=== PATIENT | female | born 2000 | race Caucasian/White ===

== ENCOUNTER 2020-02-16 18:02 | Emergency (ER) | payer MEDICAID ==
[2020-02-16] MEDS ORDERED: ONDANSETRON 4 MG TAB.RAPDIS PO ONE (18:43)
--- NOTE | 2020-02-16 18:48 | ER Document Report ---
ED Medical Screen (RME) - General Chief Complaint: Nausea/Vomiting Stated Complaint: NAUSEA,DIZZINESS Time Seen by Provider: 02/16/20 18:36 Mode of Arrival: Ambulatory Information source: Patient Notes: 19-year-old female presented to ED for a abscess to the groin area some day. 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 She states she went to her primary care doctor and they told her it was a viral infection and gave her some tramadol ibuprofen and Valtrex and some topical lidocaine cream. She states none of these are doing her any good and now she is lightheaded nausea vomiting and has had a fever off and on. She is afebrile at this time. She states she did take ibuprofen about 2 hours ago 600 mg. 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 She states she does smoke 15 cigarettes does not drink or do any drugs. I have greeted and performed a rapid initial assessment of this patient. A comprehensive ED assessment and evaluation of the patient, analysis of test results and completion of medical decision making process will be conducted by an additional ED providers. - Related Data Allergies/Adverse Reactions: Sulfa (Sulfonamide Antibiotics) Allergy (Verified 02/16/20 18:36) Physical Exam - Vital signs Vitals: Temp Pulse Resp BP Pulse Ox 98.3 F 78 18 139/84 H 100 02/16/20 18:12 02/16/20 18:12 02/16/20 18:12 02/16/20 18:12 02/16/20 18:12 Course - Vital Signs Vital signs: Temp Pulse Resp BP Pulse Ox 98.3 F 78 18 139/84 H 100 02/16/20 18:12 02/16/20 18:12 02/16/20 18:12 02/16/20 18:12 02/16/20 18:12
[2020-02-16 19:31] LABS: APPEARANCE,URINE CLOUDY; BILIRUBIN,URINE NEGATIVE (NEGATIVE); COLOR,URINE YELLOW; GLUCOSE, URINE NEGATIVE (NEGATIVE); KETONES,URINE NEGATIVE (NEGATIVE); LEUKOCYTE ESTERASE,URINE SMALL (NEGATIVE); NITRITE,URINE NEGATIVE (NEGATIVE); PROTEIN,URINE NEGATIVE (NEGATIVE); URINE SPECIFIC GRAVITY 1.021; UROBILINOGEN,URINE NEGATIVE mg/dL (<2.0)
[2020-02-16] MEDS ORDERED: ACYCLOVIR 200 MG CAPSULE PO ONE (20:00)
[2020-02-16] MEDS ORDERED: GABAPENTIN 300 MG CAPSULE PO ONE (20:01)
--- NOTE | 2020-02-16 20:01 | ER Document Report ---
ED General - General Chief Complaint: Abscess Stated Complaint: NAUSEA,DIZZINESS Time Seen by Provider: 02/16/20 18:36 Mode of Arrival: Ambulatory Notes: Patient is a 19-year-old white female with a history of genital infection who presents the emergency department the chief complaint of ongoing pain. Patient has seen her regular doctor was placed on Valtrex was given lidocaine ointment and tramadol. She states the medicine is not working the pain is persisted and the infection is not going away. She states its involving the left labia, ulcerated and burning. States she is had this several times in the past. Denies any abdominal pain or vaginal discharge. No urinary complaints. No fevers, chills or night sweats. States she feels generally ill and uncomfortable. - Related Data Allergies/Adverse Reactions: Sulfa (Sulfonamide Antibiotics) Allergy (Verified 02/16/20 18:36) Past Medical History - General Information source: Patient - Social History Smoking Status: Current Every Day Smoker Family History: Reviewed & Not Pertinent - Past Medical History Cardiac Medical History: Reports: Hx Hypertension Past Surgical History: Reports: Hx Oral Surgery - wisdom teeth removal Review of Systems - Review of Systems Constitutional: denies: Fever EENT: denies: Nose pain Cardiovascular: denies: Dyspnea Respiratory: denies: Sputum Gastrointestinal: denies: Poor fluid intake Genitourinary: Pain Female Genitourinary: denies: Post menopausal Musculoskeletal: denies: Muscle stiffness Skin: denies: Change in hair/nails Hematologic/Lymphatic: denies: Blood clots Neurological/Psychological: Weakness Physical Exam - Vital signs Vitals: Temp Pulse Resp BP Pulse Ox 98.3 F 78 18 139/84 H 100 02/16/20 18:12 02/16/20 18:12 02/16/20 18:12 02/16/20 18:12 02/16/20 18:12 - General General appearance: Appears well, Alert In distress: None Notes: Nontoxic, no acute distress - Respiratory Respiratory status: No respiratory distress Chest status: Nontender Breath sounds: Normal Chest palpation: Normal - Cardiovascular Rhythm: Regular Heart sounds: Normal auscultation Murmur: No - Abdominal Inspection: Normal Distension: No distension Bowel sounds: Normal Tenderness: Nontender Organomegaly: No organomegaly - Genitourinary Notes: Cluster of lesions ulcerated appearance the left labia majora, very sensitive to light touch. No drainage. No abscess formation. No visible vaginal discharge on external exam. Chaperoned by female RN. - Neurological Neuro grossly intact: Yes Cognition: Normal Orientation: AAOx4 - Psychological Associated symptoms: Normal affect, Normal mood - Skin Skin Color: Other - Normal exposed skin except area described above Course - Re-evaluation Re-evalutation: 02/16/20 20:05 History and physical consistent with a herpetic viral infection of the labia. Will be started on acyclovir for recurrence. Given gabapentin for pain. She will continue using topical lidocaine cream. Counseled her at length regarding the importance of outpatient follow-up, to remain abstinent at this time or use sexual barrier protection and advised that she return here any ER immediately with any new, persistent or worsening symptoms. She verbalized understood and agreed. - Vital Signs Vital signs: Temp Pulse Resp BP Pulse Ox 98.3 F 78 18 139/84 H 100 02/16/20 18:12 02/16/20 18:12 02/16/20 18:12 02/16/20 18:12 02/16/20 18:12 - Laboratory Laboratory results interpreted by me: 02/16/20 19:10 Urine Blood MODERATE H Ur Leukocyte Esterase SMALL H Discharge - Discharge Clinical Impression: Herpes genitalia Qualifiers: Herpes simplex infection site: unspecified Qualified Code(s): A60.00 - Herpesviral infection of urogenital system, unspecified Condition: Stable Disposition: HOME, SELF-CARE Instructions: Genital Herpes ([facility]), Acyclovir ([facility]) Additional Instructions: Follow-up with your regular doctor in 2 to 3 days for reevaluation. Return here or any ER immediately with any new, persistent or worsening symptoms. Prescriptions: Gabapentin [Neurontin 300 mg Capsule] 300 mg PO Q8 #20 cap Acyclovir [Zovirax 200 mg Capsule] 400 mg PO Q4H 5 Days #50 capsule Referrals: ISMAEL JOHNSON MD [ACTIVE STAFF] - Follow up as needed
[2020-02-16 20:10] VITALS: BP 153/60
== END 2020-02-16 20:15 | disposition home or self-care (01) ==
LOC: ER 18:02
DX: A60.00 Herpesviral infection of urogenital system, unspecified (principal); R11.0 Nausea; R42 Dizziness and giddiness; R30.0 Dysuria; F17.200 Nicotine dependence, unspecified, uncomplicated; Z88.2 Allergy status to sulfonamides
CPT/HCPCS: 99283; 87086; 87088; 81001; S0119; J3490

== ENCOUNTER 2020-03-20 21:48 | Emergency (ER) | payer MEDICAID ==
[2020-03-20] MEDS ORDERED: ACETAMINOPHEN 325 MG TABLET PO ONE (22:59)
--- NOTE | 2020-03-20 23:00 | ER Document Report ---
ED Medical Screen (RME) - General Stated Complaint: COUGH/CONGESTION/FEVER/DIFFICULT BREATHING Time Seen by Provider: 03/20/20 22:58 Mode of Arrival: Ambulatory Information source: Patient Notes: HPI; 19-year-old female presents to the emergency room complaining of general body aches cough with congestion and a fever of 101 that started yesterday. States he been taking Tylenol with minimal relief. Denies any ill contacts. Denies any COVID-19 exposure. Did have a negative Covid test about a month ago. PE: Alert and oriented x3. Mild distress noted. Lungs: Scattered rhonchi no wheezes no rales. Heart: Regular rate rhythm without murmurs, rubs, gallops. I have greeted and performed a rapid initial assessment of this patient. A comprehensive ED assessment and evaluation of the patient, analysis of test results and completion of the medical decision making process will be conducted by additional ED providers. I have specifically instructed the patient or family members with the patient to immediately return to any nursing staff should anything change in the patient's condition or with their chief complaint. TRAVEL OUTSIDE OF THE [place] IN LAST 30 DAYS: No - Related Data Allergies/Adverse Reactions: Sulfa (Sulfonamide Antibiotics) Allergy (Verified 02/16/20 18:36) Home Medications: BCP Past Medical History - Past Medical History Cardiac Medical History: Reports: Hx Hypertension Past Surgical History: Reports: Hx Oral Surgery - wisdom teeth removal Physical Exam - Vital signs Vitals: Temp Pulse Resp BP Pulse Ox 99.3 F 81 20 148/89 H 99 03/20/20 21:59 03/20/20 21:59 03/20/20 21:59 03/20/20 21:59 03/20/20 21:59 Course - Vital Signs Vital signs: Temp Pulse Resp BP Pulse Ox 99.3 F 81 20 148/89 H 99 03/20/20 21:59 03/20/20 21:59 03/20/20 21:59 03/20/20 21:59 03/20/20 21:59
[2020-03-21 01:20] LABS: A TYPE INFLUENZA AG NEGATIVE (NEGATIVE); B INFLUENZA AG NEGATIVE (NEGATIVE)
--- NOTE | 2020-03-21 03:48 | RADIOLOGY REPORT (SQ) ---
EXAM DESCRIPTION: XR CHEST 2 VIEWS COMPLETED DATE/TME: 03/21/2020 03:17 CLINICAL HISTORY: cough COMPARISON: None. FINDINGS: Frontal and lateral radiographic views of the chest. Cardiomediastinal silhouette: Normal size and contour. Lungs: No consolidation, pneumothorax, or pleural effusion. Bones: No acute osseous abnormality. Upper abdomen: No abnormality identified. IMPRESSION: 1. No acute pulmonary process identified.
[2020-03-21] MEDS ORDERED: ALBUTEROL SULFATE 0.083% NEB 2.5 MG/3 ML AMPUL NEB ONE (04:09)
--- NOTE | 2020-03-21 04:38 | ER Document Report ---
ED General - General Chief Complaint: Flu Symptoms Stated Complaint: COUGH/CONGESTION/FEVER/DIFFICULT BREATHING Time Seen by Provider: 03/20/20 22:58 Mode of Arrival: Ambulatory TRAVEL OUTSIDE OF THE [place] IN LAST 30 DAYS: No - HPI Notes: Patient is a 19-year-old female who presents emergency department for evaluation of fever, cough, body aches, nasal congestion, sore throat. She is also having difficulty smelling. She states her cough is been dry and nonproductive. No known Covid exposures to her knowledge. - Related Data Allergies/Adverse Reactions: Sulfa (Sulfonamide Antibiotics) Allergy (Verified 02/16/20 18:36) Home Medications: BCP Past Medical History - General Information source: Patient - Social History Smoking Status: Current Every Day Smoker Family History: Reviewed & Not Pertinent - Past Medical History Cardiac Medical History: Reports: Hx Hypertension Pulmonary Medical History: Reports: Hx Pneumonia Past Surgical History: Reports: Hx Oral Surgery - wisdom teeth removal Review of Systems - Review of Systems Constitutional: See HPI EENT: See HPI Cardiovascular: No symptoms reported Respiratory: See HPI Gastrointestinal: No symptoms reported Genitourinary: No symptoms reported Musculoskeletal: No symptoms reported Skin: No symptoms reported Neurological/Psychological: No symptoms reported -: Yes All other systems reviewed and negative Physical Exam - Vital signs Vitals: Temp Pulse Resp BP Pulse Ox 99.3 F 81 20 148/89 H 99 03/20/20 21:59 03/20/20 21:59 03/20/20 21:59 03/20/20 21:59 03/20/20 21:59 - Notes Notes: Vital signs reviewed, please refer to chart. Head is normocephalic, atraumatic. Pupils equal round, reactive to light. Oral mucosa is moist. Pharynx is mildly erythematous without exudate. Neck is supple without meningismus. Heart is regular rate and rhythm. Lungs reveal scant expiratory wheezes anteriorly. Abdomen is soft, nontender, normoactive bowel sounds throughout. Extremities without cyanosis, clubbing. Posterior calves are nontender. Peripheral pulses are equal. Skin is warm and dry. Patient is awake, alert, neurological exam is nonfocal. Course - Re-evaluation Re-evalutation: 03/21/20 04:35 Patient presents to the emergency department for evaluation. She had a negative influenza and chest x-ray here. Her findings are most concerning to me for COVID-19 infection. Covid test will be performed. She is given albuterol inhaler for the scant wheezes, albuterol treatment while here. I will send her home as a PUI. She is to follow-up with primary care, return to the ED with worsening or new concerning symptoms of any sort. - Vital Signs Vital signs: Temp Pulse Resp BP Pulse Ox 98.9 F 76 20 140/71 H 99 03/21/20 03:20 03/21/20 03:20 03/20/20 21:59 03/21/20 03:20 03/21/20 03:20 Discharge - Discharge Clinical Impression: Person under investigation for COVID-19, Viral respiratory illness Condition: Stable Disposition: HOME, SELF-CARE Instructions: COVID-19 Guidance for Persons Under Investigation, Viral Syndrome ([facility]) Additional Instructions: Rest. Try to quit smoking. Albuterol inhaler as needed for wheezing and shortness of breath. Follow-up with primary care next week. Return the emergency department with worsening or new concerning symptoms of any sort. Forms: Return to Work
[2020-03-21 04:46] VITALS: BP 140/72
--- OUTSIDE RECORDS SUMMARY | 2020-03-22 14:52 | XMS REPORT ---
:2000 Author Organization [facility] Address [facility] [place] [address] [place] [address] Care Team Providers Name Role Phone PEDIATRICS, [place] Primary Care Physician Unavailable DELANO PARIS Attending Clinician Unavailable TANA Attending Clinician Unavailable CELINA CONRAD Attending Clinician Unavailable EMERGENCY Attending Clinician Unavailable MARI Attending Clinician Unavailable NIA CASH Attending Clinician Unavailable SERINA Attending Clinician Unavailable MARCELINO SANCHEZ Attending Clinician Unavailable Raine LUNA Attending Clinician Unavailable BOO PARIS Admitting Clinician Unavailable EMERGENCY Admitting Clinician Unavailable Romana ALPINE GUIDE, T Unavailable Unavailable Desha ALPINE GUIDE, C Unavailable Unavailable Mathew ALPINE GUIDE Unavailable Unavailable Christina GRILL CHEF, F Unavailable Unavailable Sergio BISHOP, Yogesh Unavailable Unavailable Homer NA Unavailable Unavailable Jessica ALPINE GUIDE, R Unavailable Unavailable Sigrid NAIK Unavailable Allergies, Adverse Reactions, Alerts Allergy Allergy Type Status Severity Reaction(s) Onset Inactive Treat ing Comments Name Date Date Clinician Sulfa Propensity Inactive Severe Nicholson-Hany (Sulfonam to adverse son syndrome 4-27 eleazar reactions to 00:00: Antibioti drug 00 cs) Sulfa Drug Allergy Active High Rash (Sulfonam 1-28 eleazar 00:00: Antibioti 00 cs) Sulfa Propensity Active Severe Rash (Sulfonam to adverse 1-28 eleazar reactions to 00:00: Antibioti drug 00 cs) Sulfa Allergy to Active Severe Nicholson-Hany (Sulfonam substance 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 Clinician (SIG) Name Name amoxicillin 2019- No 4877 1{tbl} 1 Tab, -pot 10-30 Oral, ED clavulanate 01:30: 01:35 ONCE, Tue (AUGMENTIN) 00 :00 10/31/19 at 500-125 mg 0130, For per tablet 1 1 Tab dose
In dications: Empiric Infection Treatment benzonatate 2019- No 100mg 100 mg, (TESSALON) 10-30 Oral, ED capsule 100 01:00: 01:01 ONCE, Tue mg 00 :00 10/31/19 at 0100, For 1 dose
Fo r cough, do NOT chew or crush. Swallow capsule whole.
amoxicillin 2019- No 1{tbl} Take 1 Tab -pot 10-30 by mouth clavulanate 00:00: 23:59 twice a (AUGMENTIN) 00 :00 day with 875-125 mg meals for Oral Tablet 7 days. benzonatate 2019- No 200mg [id number] Take 1 C ap (TESSALON) 10-30 [id number] by mouth 200 mg Oral 00:00: 23:59 3D three Capsule 00 :00 times a day as needed for Cough for up to 5 days. Do not chew capsule. norethindro Yes 1{tbl} QD Take 1 Tab ne 3-11 by mouth (MICRONOR) 00:00: daily. 0.35 mg 00 Oral Tablet etonogestre No 68mg 68 mg by l 1-13 Subdermal (NEXPLANON) 23:29: route 68 mg 12 Once. Subdermal Implant sertraline 2018-05 Yes 75mg QD Take 75 mg (ZOLOFT) 50 06-01 by mouth mg Oral 00:00: daily. Tablet 00 ENULOSE 10 2018-05- No TAKE 15ML gram/15 mL 06-01 BY MOUTH Oral 00:00: 00:00 EVERY DAY Solution 00 :00 NEEDED fentaNYL 2018-05- No 50ug 50 mcg (SUBLIMAZE) 05-27 (0.551 injection 01:00: 01:08 mcg/kg), 50 mcg 00 :00 Intravenou s, ONCE, 03/27/19 at 0100, For 1 dose
Fa ll Risk Medication
iohexol 2018-05- No 95mL 33,250 mg (OMNIPAQUE) 05-27 (95 mL), 350 mg 00:31: 00:30 Intravenou iodine/mL 49 :49 s, RAD solution ONCE, 33,250 mg Other, Starting 03/27/19 at 0031, For 1 day
For oral administra tion, mix 30 mL contrast with 900 mL water or other patient-pr eferred beverage, such as Lemonade, James-Aid, Sprite, 7-Up.&nbsp ; Do not mix with any red colored beverage.& lt;br>Is patient able to answer these questions? Yes
[employer] tech name and phone number: Alicia [phone]
Previous contrast reaction (except nausea/vom iting, heat/flush ing/pain)? If yes, describe in comments. No
Pret reatment for current study? No
Kidn ey disease? No
A re you diabetic? No
If yes, are you taking Glucophage , Metformin, Glucovance , or other oral diabete s medication s? No
Hist ory of asthma? If yes, how severe? No
Are you currently taking medication for asthma? No
Hist ory of drug or other allergies? Yes
History of anaphylact ic reaction to a drug, food, or other substance? No
Sign ificant cardiac dysfunctio n, e.g. unstable angina, severe congestive failur e, pulmonary hypertensi on? No
S ickle cell disease/Th alessemia? No
Pheo chromocyto ma? No
Mult iple Myeloma? No
Are you currently or nursing an ? No
Have you had anything to eat or drink in the last 4 hours? No
Have you had a barium study in the last week? No
Have you ever had cancer? If yes, what kind and when? No
Have you ever had surgery? If yes, what kind and when? Yes
Do you have an implanted device that can be turned off, e.g. pacemaker/ defibril lator or neurostimu lator. If yes, where is it located? No cyclobenzap 2018-05 Yes 10mg [id number] Take 1 T ab rine 05-27 [id number] by mouth (FLEXERIL) 00:00: 3D three 10 mg Oral 00 times a Tablet day as needed. docusate 2018-05- No 100mg Q.5D Take 1 Cap sodium 05-2702 by mouth (COLACE) 00:00: 23:59 twice a 100 mg Oral 00 :00 day for 14 Capsule days. naproxen 2018-05- No 500mg Take 1 Tab (NAPROSYN) 05-27 by mouth 500 mg Oral 00:00: 23:59 twice a Tablet 00 :00 day with meals for 7 days. sodium 2018-05- No 1000mL 1,000 mL chloride 05-26 (11 0.9 % bolus 23:45: 00:49 mL/kg), 1,000 mL 00 :00 Intravenou s, Administer over 1 Hours, ONCE, 03/26/19 at 2345, For 1 dose cyclobenzap 2018-05- No 10mg 10 mg, rine 05-26 Oral, ED (FLEXERIL) 23:45: 23:48 ONCE, Sun tablet 10 00 :00 03/26/19 mg at 2345, For 1 dose
Fa ll Risk Medication <br& gt; ketorolac 2018-05- No 30mg 30 mg, (TORADOL) 05-26 Intravenou 30 mg/mL (1 23:45: 23:48 s, ED mL) 00 :00 ONCE, Sun injection 03/26/19 30 mg at 2345, For 1 dose GABAPENTIN 2018-05 No Take by ORAL 0-15 mouth. 13:39: 12 Cefadroxil Yes 1{Capsu Cefadroxil 500 MG Oral 4-03 le} 500 MG Capsule 10:40: Oral 19 Capsule 1 twice per day (500 MG) Active gabapentin Yes 300mg Take 300 (NEURONTIN) 1-30 mg by 300 mg Oral 00:00: mouth. Capsule 00 cetirizine 2019- No 10mg Take 10 mg (ZYRTEC) 10 06-0830 by mouth. mg Oral 00:00: 23:59 Tablet 00 :00 valACYclovi No 1000mg Take 1,000 r (VALTREX) 06-08-30 mg by 1 gram Oral 00:00: 23:59 mouth. Tablet 00 :00 gabapentin No 300mg Take 300 (NEURONTIN) 06-0830 mg by 300 mg Oral 00:00: 23:59 mouth. Capsule 00 :00 cetirizine No 10MG Take 1 Take 1 (ZYRTEC) 10 06-08 tablet (10 tab let MG tablet 00:00: 23:59 mg total) (10 m g 00 :00 by mouth total) by Two (2) mouth Two times a (2) times day. for a day. 14 days for 14 days conjugated No .5g Insert 0.5 Ins ert estrogens 06-08 g into the 0.5 g (PREMARIN) 00:00: 23:59 vagina into th e 0.625 00 :00 daily. for vagina mg/gram 14 days daily. vaginal for 14 cream days triamcinolo 2018- No Apply Apply ne 06-08 topically topically (KENALOG) 00:00: 23:59 Three (3) Three (3) 0.1 % 00 :00 times a times a ointment day. for day. for 14 days 14 days valACYclovi No 1000MG Take 1 Take 1 r (VALTREX) 06-08 tablet tablet 1000 MG 00:00: 23:59 (1,000 mg (1,000 mg tablet 00 :00 total) by total) by mouth Two mouth Two (2) times (2) times a day. for a day. 12 days for 12 days gabapentin No 300MG Take 1 Take 1 (NEURONTIN) 06-0804 capsule capsul e 300 MG 00:00: 23:59 (300 mg (300 mg capsule 00 :00 total) by total) b y mouth mouth Three (3) Three (3) times a times a day. for 5 day. for days 5 days oxyCODONE 2018- No 5MG Take 1 Take 1 (ROXICODONE 06-08 tablet (5 tabl et (5 ) 5 MG 00:00: 23:59 mg total) mg total ) immediate 00 :00 by mouth by mout h release every four every tablet (4) hours four (4) as needed hours as for pain. needed for up to for pain. 5 days for up to 5 days valACYclovi 2018- No 500MG Take 1 Take 1 r (VALTREX) 06-08 tablet tablet 500 MG 00:00: 23:59 (500 mg (500 mg tablet 00 :00 total) by total) by mouth two mouth two (2) times (2) times a day as a day as needed. needed. for up to for up to 3 days For 3 days recurrent For outbreak, recurrent take three outbreak, day course take three day course Valtrex 500 Yes 1{tab} Valtrex MG Oral 06-07 500 MG Tablet 00:00: Oral 00 Tablet 1 tab BID prn (500 MG) Start : 9Active morphine 4 2018- No 4mg 4 mg mg/mL 06-05 (0.049 injection 4 22:15: 22:17 mg/kg), mg 00 :00 Intravenou s, ED ONCE, 06/05/18 at 2215, For 1 dose morphine 4 2018- No Starting mg/mL 06-05 Sun injection 22:09: 22:17 06/05/18 at - Pyxis 39 :00 2209, For Override 1 Pull dose
Cr eated by cabinet override&n bsp;Fall Risk Medication
HYDROcodone 2018- No 2{tbl} 2 Tab, -acetaminop 06-05 Oral, ED hen (NORCO, 21:15: 21:18 ONCE, Sun LORCET) 00 :00 06/05/18 at 5-325 mg 2115, For per tablet 1 2 Tab dose
Fa ll Risk Medication . For pain. Pediatrics : Do not exceed 5 doses of acetaminop hen in 24 hours.
diphenhydrA 2018- No 50mg 50 mg, MINE 06-05 Intravenou (BENADRYL) 21:15: 21:18 s, ED injection 00 :00 ONCE, Sun 50 mg 06/05/18 at 2115, For 1 dose
Fa ll Risk Medication . Do NOT exceed 25 mg/minute.
clindamycin 2018- No 2318 900mg Q8H 900 mg, (CLEOCIN) 06-05 Intravenou 900 mg/50 17:20: 17:19 s, at 100 mL IVPB 00 :00 mL/hr, (premix) Administer 900 mg over 30 Minutes, EVERY 8 HOURS FREE TIMES, First dose on 06/05/18 at 1720, For 7 days
In dications: Skin and Skin Structure Infection predniSONE 2018- No 60mg 60 mg, (DELTASONE) 06-05 Oral, ED tablet 60 17:20: 17:29 ONCE, Sun mg 00 :00 06/05/18 at 1720, For 1 dose
Gi ve with food and a full glass of water to reduce GI upset.&nbs p;
magic 2018- No 5mL Q4H 5 mL, mouthwash 06-05 Swish & liquid 5 mL 16:36: 16:35 Spit, 45 :45 EVERY 4 HOURS NEEDED, Mouth Discomfort , Starting 06/05/18 at 1636, For 30 days
In gredients: &nbs p;nystatin 62,500 units/5 mL; hydrocorti sone 1.25 mg/5 mL; & nbsp;diphe nhydramine 11 mg/5 mL. R efrigerate . &nb sp;Shake well.&nbsp ; Pro tect from light.&nbs p; &n bsp;Med Disposal - [facility]
diphenhydrA 2018- No 25mg 25 mg, MINE 06-05 Oral, ED (BENADRYL) 16:15: 17:29 ONCE, Sun capsule 25 00 :00 06/05/18 at mg 1615, For 1 dose
Fa ll Risk Medication <br& gt; HYDROcodone 2018- No 2{tbl} 2 Tab, -acetaminop 06-05 Oral, ED hen (NORCO, 16:15: 17:29 ONCE, Sun LORCET) 00 :00 06/05/18 at 5-325 mg 1615, For per tablet 1 2 Tab dose
Fa ll Risk Medication . &nb sp;For pain.&nbsp ; Ped iatrics:&n bsp; Do not exceed 5 doses of acetaminop hen in 24 hours.
magic 2019- No 5mL 5 mL, mouthwash 06-05 Swish & liquid 5 mL 15:15: 15:18 Spit, ED 00 :00 ONCE, 06/05/18 at 1515, For 1 dose
In gredients: &amp ;nbsp;nyst atin 62,500 units/5 mL; hydrocorti sone 1.25 mg/5 mL; & nbsp;diphe nhydramine 11 mg/5 mL. R efrigerate . &nb sp;Shake well.&nbsp ; Pro tect from light.&nbs p; &n bsp;Med Disposal - [facility]
morphine 4 2019- No 4mg 4 mg mg/mL 06-05 (0.049 injection 4 12:55: 13:04 mg/kg), mg 00 :00 Intravenou s, ED ONCE, 06/05/18 at 1255, For 1 dose diphenhydrA 2018- No 25mg 25 mg, MINE 06-05 Oral, ED (BENADRYL) 11:10: 11:15 ONCE, Sun capsule 25 00 :00 06/05/18 at mg 1110, For 1 dose
Fa ll Risk Medication <br& gt; HYDROcodone 2019- No 1{tbl} 1 Tab, -acetaminop 06-05 Oral, ED hen (NORCO, 11:10: 11:15 ONCE, Sun LORCET) 00 :00 06/05/18 at 5-325 mg 1110, For per tablet 1 1 Tab dose
Fa ll Risk Medication . &nb sp;For pain.&nbsp ; Ped iatrics:&n bsp; Do not exceed 5 doses of acetaminop hen in 24 hours.
morphine 2 No 2mg 2 mg mg/mL 06-05 (0.0245 injection 2 07:50: 08:33 mg/kg), mg 00 :00 Intravenou s, ED ONCE, 06/05/18 at 0750, For 1 dose ondansetron No 4mg 4 mg (ZOFRAN) 06-05 (0.049 injection 4 07:50: 08:33 mg/kg), mg 00 :00 Intravenou s, ED ONCE, 06/05/18 at 0750, For 1 dose
Do ses 4 mg or less can be administer ed IV push over 3-5 minutes. Doses over 4 mg should be diluted and infused over 15 minutes.&n bsp; &nbs p;
morphine 2 No 2mg 2 mg mg/mL 06-05 (0.0245 injection 2 05:55: 06:40 mg/kg), mg 00 :00 Intravenou s, ED ONCE, 06/05/18 at 0555, For 1 dose fluorescein 2018- No 1{strip 1 Strip, (FLUORETS) 06-05 } Both Eyes, ophthalmic 05:50: 05:50 ED ONCE, strip 1 00 :00 Sun Strip 06/05/18 at 0550, For 1 dose fluorescein No Starting (FLUORETS) 06-05 Sun 1 mg 05:47: 05:50 06/05/18 at ophthalmic 49 :00 0547, For strip - 1 Pyxis dose
Cr Override eated by Pull cabinet override<b r> tetracaine No 2[drp] 2 Drop, HCl (PF) 06-05 Both Eyes, (OPTICAINE, 05:25: 05:37 ED ONCE, PONTOCAINE) 00 :00 Sun 0.5 % 06/05/18 at ophthalmic 0525, For solution 2 1 dose Drop fluorescein 2019- No 1{strip 1 Strip, (FLUORETS) 06-05 } Both Eyes, ophthalmic 05:25: 05:38 ED ONCE, strip 1 00 :00 Sun Strip 06/05/18 at 0525, For 1 dose iohexol 2019- No 95mL 33,250 mg (OMNIPAQUE) 06-05 (95 mL), 350 mg 04:50: 04:49 Intravenou iodine/mL 22 :22 s, RAD solution ONCE, 33,250 mg Other, Starting 06/05/18 at 0450, For 1 day
For oral administra tion, mix 30 mL contrast with 900 mL water or other patient-pr eferred beverage, such as Lemonade, James-Aid, Sprite, 7-Up.&nbsp ; Do not mix with any red colored beverage.< br>Is patient able to answer these questions? Yes
[employer] tech name and phone number: ALICIA [phone]
Previous contrast reaction (except nausea/vom iting, heat/flush ing/pain)? If yes, describe in comments. No
Pret reatment for current study? No
Kidn ey disease? No
A re you diabetic? No
If yes, are you taking Glucophage , Metformin, Glucovance , or other oral diabete s medication s? No
Hist ory of asthma? If yes, how severe? No
Are you currently taking medication for asthma? No
Hist ory of drug or other allergies? No
Hist ory of anaphylact ic reaction to a drug, food, or other substance? No
Sign ificant cardiac dysfunctio n, e.g. unstable angina, severe congestive failur e, pulmonary hypertensi on? No
Sick le cell disease/Th alessemia? No
Pheo chromocyto ma? No
Mult iple Myeloma? No
A re you currently or nursing an ? No
Have you had anything to eat or drink in the last 4 hours? No
Have you had a barium study in the last week? No
Have you ever had cancer? If yes, what kind and when? No
Have you ever had surgery? If yes, what kind and when? Yes
Do you have an implanted device that can be turned off, e.g. pacemaker/ defibril lator or neurostimu lator. If yes, where is it located? No diphenhydrA 2018- No 50mg 50 mg, MINE 06-05 Oral, ED (BENADRYL) 04:20: 04:42 ONCE, Sun capsule 50 00 :00 06/05/18 at mg 0420, For 1 dose
Fa ll Risk Medication <br& gt; morphine 4 2019- No 4mg 4 mg mg/mL 06-05 (0.049 injection 4 04:05: 04:09 mg/kg), mg 00 :00 Intravenou s, ED ONCE, 06/05/18 at 0405, For 1 dose lactated 2018- No 1000mL 1,000 mL Ringer's 06-05 (12.3 bolus 1,000 04:05: 04:37 mL/kg), mL 00 :00 Intravenou s, Administer over 28 Minutes, ED ONCE, 06/05/18 at 0405, For 1 dose clindamycin 2019- No 2318 600mg 600 mg, (CLEOCIN) 06-05 Intravenou 600 mg/50 02:45: 03:27 s, at 100 mL IVPB 00 :00 mL/hr, (premix) Administer 600 mg over 30 Minutes, NOW, 06/05/18 at 0245, For 1 dose
Indicatio ns: Skin and Skin Structure Infection morphine 2 2019- No 2mg 2 mg mg/mL 06-05 (0.0245 injection 2 02:05: 02:05 mg/kg), mg 00 :00 Intravenou s, ONCE, 06/05/18 at 0205, For 1 dose ondansetron 2018- Yes Starting (ZOFRAN) 4 06-05 Sun mg/2 mL 01:10: 06/05/18 at injection 08 0110, For - Pyxis 1 Override dose
Cr Pull eated by cabinet override<b r> lactated 2018- No 1000mL 1,000 mL Ringer's 06-05 (12.3 bolus 1,000 01:10: 01:40 mL/kg), mL 00 :00 Intravenou s, Administer over 28 Minutes, ED ONCE, 06/05/18 at 0110, For 1 dose morphine 4 No 4mg 4 mg mg/mL 06-05 (0.049 injection 4 01:10: 01:13 mg/kg), mg 00 :00 Intravenou s, ED ONCE, 06/05/18 at 0110, For 1 dose ondansetron 2018- No 4mg 4 mg (ZOFRAN) 06-05 (0.049 injection 4 01:10: 01:11 mg/kg), mg 00 :00 Intravenou s, ED ONCE, 06/05/18 at 0110, For 1 dose
Do ses 4 mg or less can be administer ed IV push over 3-5 minutes. Doses over 4 mg should be diluted and infused over 15 minutes.&n bsp; &nbs p;
lidocaine 2018- No 15mL 15 mL, PF 05-30 Intraderma (XYLOCAINE) 12:00: 11:59 l, ONCE, 10 mg/mL (1 00 :00 Mon %) 05/30/18 at injection 1200, For 15 mL 1 dose lidocaine No Starting PF 05-30 (XYLOCAINE) 11:56: 05/30/18 at 10 mg/mL (1 58 1156, For %) 1 injection dose
Cr - Pyxis eated by Override cabinet Pull override<b r> sulfamethox 2018- No Starting azole-trime 05-30 Mon thoprim 11:52: 12:01 05/30/18 at (BACTRIM 13 :00 1152, For DS,SEPTRA 1 DS) 800-160 dose
Cr mg per eated by tablet - cabinet Pyxis override<b Override r> Pull sulfamethox 2018- No 2318 2{tbl} 2 Tab, azole-trime 05-30 Oral, ED thoprim 11:50: 12:01 ONCE, Mon (BACTRIM 00 :00 05/30/18 at DS,SEPT 1150, For DS) 800-160 1 mg per dose
Us tablet 2 e for Tab Bactrim DS
Maribeth cations: Skin and Skin Structure Infection traMADol 2018- No 50mg 50 mg, (ULTRAM) 05-30 Oral, tablet 50 11:40: 12:01 ONCE, Mon mg 00 :00 05/30/18 at 1140, For 1 dose lidocaine 2018- No Starting PF 05-30 Mon (XYLOCAINE) 11:39: 11:59 05/30/18 at 10 mg/mL (1 49 :00 1139, For %) 1 injection dose
Cr - Pyxis eated by Override cabinet Pull override<b r> sulfamethox 2018- No 2{tbl} Q.5D Take 2 azole-trime 05-30 Tabs by thoprim 00:00: 23:59 mouth (BACTRIM 00 :00 twice a DS, day for 10 DS) 800-160 days. mg Oral Tablet traMADol 2018- No 50mg Q6H Take 1 Tab (ULTRAM) 50 05-30 by mouth mg Oral 00:00: 23:59 every 6 Tablet 00 :00 hours as needed for Pain for up to 3 days. Estradiol 1 2017- No Lashawn Davidson 1{Table QD Estradiol MG Oral 07-20 Christina SALAZAR t} 1 MG Oral Tablet 00:00: 00:00 Tablet 1 00 :00 (one) Tablet Tablet daily for 14 days Quantity: 14 {Tablet} Refills: 0 Ordered: 8 Christina SALAZARLashawn Start : 8 End : 8 Inactive Cephalexin 2017- No Luciana 1{Table Q0.5D Cephalex in 500 MG Oral 07-1215 T Jeremy t} 500 MG Tablet 00:00: 00:00 PA Oral 00 :00 Tablet 1 (one) Tablet two times daily for 10 days Quantity: 20 {Tablet} Refills: 0 Ordered: 12-Jul-2017 Luciana Gomez Start : 12-Jul-2017 End : 8 Inactive Nexplanon 2017- Yes Nexplanon 68 MG - 68 MG Subcutaneou 09:54: Subcutaneo s Implant 51 us Implant (68 MG) Active Sertraline No Palma W 1.5{Tab QD Sertral ine HCl 50 MG 07-05 Eiban PA let} HCl 50 MG Oral Tablet 00:00: Oral 00 Tablet 1.5 Tablet daily for 30 days Quantity: 45 {Tablet} Refills: 1 Ordered: 8 Elsie LEVY, Palma W Start : 8 Active Lidocaine 2017- No Erica E 4.5{Mil Lidocaine S ite: HCl 1 % 05-26 Chichi liliter HCl 1 % Arm, (L) Injection 00:00: 00:00 Stacy BISHOP } Injection Solution 00 :00 Solution 4.5 Milliliter Ordered: 8 Erica Mclaughlin MD Start : 8 End : 8 Administer ed Comments: Site: Arm, (L) Nexplanon 2018- No Erica E 68{Mill Nexplanon S ite: 68 MG 05-26 Chichi igrmacario} 68 MG Arm, (L) Subcutaneou 00:00: 00:00 Stacy BISHOP Subcutane o s Implant 00 :00 us Implant 68 Milligram Ordered: 8 Erica Mclaughlin MD Start : 8 End : 8 Administer ed Comments: Site: Arm, (L) Fluticasone 2018- No Ecxaida 1{Bledsoe Fluticaso n Propionate 05-18 Coronel NA } e 50 MCG/ACT 00:00: 00:00 Propionate Nasal 00 :00 50 MCG/ACT Suspension Nasal Suspension 1 (one) Bledsoe Bledsoe each nostril daily for 30 days Quantity: 1 {Bottle} Refills: 1 Ordered: 12-Jul-2017 Coronel NA, Ecxaida Start : 18-May-2017 End : 12-Jul-2017 Inactive Amoxicillin 2017- No Felicitas 1{Table Amoxicill i 875 MG Oral 05-11 Faustina LEVY t} n 875 MG Tablet 00:00: 00:00 Oral 00 :00 Tablet 1 (one) Tablet BID for 7 days Quantity: 14 {Tablet} Refills: 0 Ordered: 11-May-2017 Felicitas Wood Start : 11-May-2017 End : 18-May-2017 Inactive MedroxyPROG 2016-05- No Felicitas 150{mg} MedroxyPR O Site: ESTERone 06-28 Faustina LEVY GESTERone Delt oid, Acetate 150 00:00: 00:00 Acetate (L) MG/ML 00 :00 150 MG/ML Intramuscul Intramuscu ar lar Suspension Suspension 150 mg Ordered: 7 Felicitas Wood Start : End : Administer ed Comments: Site: Deltoid, (L) Depo-Director Supply Chain 2016-05- No Jazz Navarro 1{Felicitas Depo-Prov e to be a 150 MG/ML 06-27 Dewayne liter} ra 150 give n in Intramuscul 00:00: 00:00 ALPINE GUIDE MG/ML office ar 00 :00 Intramuscu Suspension lar Suspension 1 (one) Milliliter Milliliter q90 days for 0 days Quantity: 1 {Vial} Refills: 0 Ordered: 8 Dewayne ALPINE GUIDEJazz Amanda S Start : End : 8 Inactive Comments: to be given in office Omeprazole 2016-05- No Nell Reid 1{Table Omeprazole 20 MG Oral 06-27 Romana WALKER t} 20 MG Oral Tablet 00:00: 00:00 Tablet Delayed 00 :00 Delayed Release Release 1 (one) Tablet Tablet BID for 30 days Quantity: 60 {Tablet} Refills: 0 Ordered: Nell Avendano LPN Start : End : 8 Inactive BusPIRone 2016-05- No Felicitas 1{Table BusPIRone HCl 7.5 MG 06-27 Faustina reid} HCl 7.5 MG Oral Tablet 00:00: 00:00 Oral 00 :00 Tablet 1 (one) Tablet Tablet BID for 30 days Quantity: 60 {Tablet} Refills: 1 Ordered: 18-May-2017 Felicitas Wood Start : End : 18-May-2017 Inactive Albuterol 2016-05 No Felicitas Albuterol 0-17 Faustina LEVY Ordered: 09:49: 10 7 Felicitas Weems Pending Albuterol 2016-05- No Felisa H 1{nebul Albuterol Sulfate 002-28 Carmen [place]INGHAM e} Sulfate (2.5 00:00: 00:00 (2.5 MG/3ML) 00 :00 MG/3ML) 0.083% 0.083% Inhalation Inhalation Nebulizatio Nebulizati n Solution on Solution 1 (one) nebule nebule q4h x 24 hours then q4h prn SOB, wheezing for 5 days Quantity: 1 {Box} Refills: 0 Ordered: Felisa Morales RN H Start : End : 7 Inactive Albuterol 2016-05 2017- No Felicitas 1{Vial} Albuterol S ite: Sulfate 002-23 Faustina LEVY Sulfate Nose an d (2.5 00:00: 00:00 (2.5 Mouth MG/3ML) 00 :00 MG/3ML) 0.083% 0.083% Inhalation Inhalation Nebulizatio Nebulizati n Solution on Solution 1 (one) Vial Ordered: 7 Felicitas Wood Start : End : Administer ed Comments: Site: Nose and Mouth Benzonatate 2016-05 No 1{Capsu Q0.3333D Benzonat at Medicatio 200 MG Oral 0-15 le} e 200 MG n codey en Capsule 00:00: Oral as 00 Capsule 1 needed. three up to 5 times days daily, as needed (200 MG) Start : Inactive Comments: Medication taken as needed. up to 5 days LevoFLOXaci 2016-05 No 1{Table QD LevoFLOXac for 5 n 500 MG 0-15 t} in 500 MG days Oral Tablet 00:00: Oral 00 Tablet 1 daily (500 MG) Start : Inactive Comments: for 5 days PredniSONE 2016-05 No 2{Table QD PredniSONE w ith 20 MG Oral 0-15 t} 20 MG Oral sophy kfast Tablet 00:00: Tablet 2 for 5 00 daily (20 days MG) Start : Inactive Comments: with breakfast for 5 days ProAir HFA 2016-05- Felicitas 4{Puff} Q4H ProAir HFA Medicatio 108 (90 0-13 04-27 Faustina PA 108 (90 n taken Base) 00:00: 00:00 Base) as MCG/ACT 00 :00 MCG/ACT needed. Inhalation Inhalation Aerosol Aerosol Solution Solution 4 Puff Puff every four hours, as needed for 30 days Quantity: 1 {Inhaler} Refills: 1 Ordered: Felicitas Wood Start : End : Inactive Comments: Medication taken as needed. Zithromax 2016-05- Debra Pimentel 2{Table Zithromax 250 MG Oral 02-23 Radha GRILL CHEF t} 250 MG Tablet 00:00: 00:00 Oral 00 :00 Tablet 2 (two) Tablet today, one tablet each day for 4 days for 5 days Quantity: 6 {Tablet} Refills: 0 Ordered: Debra Garcia CMA Start : 7 End : Inactive Zithromax 2016-05- Debra Pimentel 2{Table Zithromax 250 MG Oral 02-23 [place] GRILL CHEF t} 250 MG Tablet 00:00: 00:00 Oral 00 :00 Tablet 2 (two) Tablet today, one tablet each day for 4 days for 5 days Quantity: 6 {Tablet} Refills: 0 Ordered: Debra Garcia CMA Start : 7 End : 7 Inactive Albuterol 2016-05- Shaina Adams 1{vial} Albuterol Site: Sulfate 02-19 Gunnar Sulfate Mouth (2.5 00:00: 00:00 MD (2.5 MG/3ML) 00 :00 MG/3ML) 0.083% 0.083% Inhalation Inhalation Nebulizatio Nebulizati n Solution on Solution 1 (one) vial Ordered: Shaina Maher MD Start : End : Administer ed Comments: Site: Mouth LAMICTAL, No LAMICTAL, 25MG (Oral 9-26 25MG (Oral Tablet) 10:27: Tablet) 21 (25 MG) Inactive LEXAPRO, No LEXAPRO, 10MG (Oral 9-26 10MG (Oral Tablet) 10:27: Tablet) 19 (10 MG) Inactive EFFEXOR XR, No 1{capsu EFFEXOR Med icatio 150MG (Oral 9-26 le} XR, 150MG n Capsule 10:27: (Oral informati Extended 18 Capsule on given Release 24 Extended by Hour) Release 24 Mother. Hour) 1 capsule at bedtime (150 MG) Inactive Comments: Medication informatio n given by Mother. EFFEXOR XR, No 1{capsu EFFEXOR Med icatio 75MG (Oral 9-26 le} XR, 75MG n Capsule 10:27: (Oral informati Extended 17 Capsule on given Release 24 Extended by Hour) Release 24 Mother. Hour) 1 capsule every morning (75 MG) Inactive Comments: Medication informatio n given by Mother. ZyrTEC No Kaylyn 1{Table ZyrTEC Allergy 10 - Mathew t} Allergy 10 MG Oral 00:00: ALPINE GUIDE MG Oral Tablet 00 Tablet 1 (one) Tablet Tablet at bedtime for 30 days Quantity: 30 {Tablet} Refills: 3 Ordered: Kaylyn Carmona LPN Start : Active VISTARIL, 2014-05 No VISTARIL, 25MG (Oral 2-22 25MG (Oral Capsule) 14:49: Capsule) 33 (25 MG) Inactive ZOLOFT, 2014-05 No 0{table ZOLOFT, 25MG (Oral 2-22 t} 25MG (Oral Tablet) 14:49: Tablet) 32 1/2 tablet (25 MG) Inactive CEFTIN, Shaina Adams 1{Table Q0.5D CEFTIN, 500MG (Oral 01-21 Gunnar t} 500MG Tablet) 00:00: 00:00 MD (Oral 00 :00 Tablet) 1 (one) Tablet two times daily for 10 days Quantity: 20 {Tablet} Refills: 0 Ordered: 5 Shaina Maher MD Start : 5 End : 5 Inactive Melatonin 2013-05 No 1 Melatonin 07-02 1 (one) 17:42: Inactive 13 FOCALIN XR, 2013-05 No 1{Capsu QD FOCALIN 1 p o 10MG (Oral 07-02 le_ER_2 XR, 10MG ever y Capsule 17:42: 4HR} (Oral morning Extended 10 Capsule Release 24 Extended Hour) Release 24 Hour) 1 (one) daily (10 MG) Inactive Comments: 1 po every morning TAMIFLU, 2013-05- Luis Daniel A 1{Capsu Q0.5D TAMIFLU, 75MG (Oral 07-02 Sergio le} 75MG (Oral Capsule) 00:00: 00:00 MD Capsule) 1 00 :00 (one) Capsule two times daily for 5 days Quantity: 10 {Capsule} Refills: 0 Ordered: 4 Luis Daniel Hill MD Start : 4 End : 4 Inactive LOESTRIN FE 2013- Luis Daniel A 1{Table QD LOESTRIN 05/29, 08-15 Sergio reid} FE 05/29, 1-20MG-MCG 00:00: 00:00 1-20MG-MCG (Oral 00 :00 (Oral Tablet) Tablet) 1 (one) Tablet daily for 28 days Quantity: 1 {Packet} Refills: 3 Ordered: 4 Luis Daniel Hill MD Start : 15-Aug-2013 End : 4 Inactive AMITRIPTYLI 2013- Shaina Adams 1{Table AMITRIP TYL NE HCL, 207-13 Gunnar t} INE HCL, 25MG (Oral 00:00: 00:00 MD 25MG (Oral Tablet) 00 :00 Tablet) 1 (one) Tablet at bedtime for 30 days Quantity: 30 {Tablet} Refills: 0 Ordered: 13-Jun-2013 Shaina Maher MD Start : 13-Jun-2013 End : 13-Jul-2013 Inactive CELEXA, Luis Daniel Zuñiga 1{Table CELEXA, 10MG (Oral 06-05 Sergio reid} 10MG (Oral Tablet) 00:00: 00:00 Tablet) 1 00 :00 (one) Tablet Tablet at bedtime for 30 days Quantity: 30 {Tablet} Refills: 3 Ordered: 4 Luis Daniel Hill MD Start : 4 End : 4 Inactive AMOXICILLIN 2013- Luciana 1{Table Q0.5D AMOXICI LLI , 500MG 05-29 T Jeremy reid} N, 500MG (Oral 00:00: 00:00 PA (Oral Tablet) 00 :00 Tablet) 1 (one) Tablet two times daily for 10 days Quantity: 20 {Tablet} Refills: 0 Ordered: 4 Luciana Gomez Start : 4 End : 4 Inactive PROZAC, Luis Daniel Zuñiga 1{Capsu QD PROZAC, 10MG (Oral 05-26 Sergio mc} 10MG (Oral Capsule) 00:00: 00:00 Capsule) 1 00 :00 (one) Capsule Capsule daily for 30 days Quantity: 30 {Capsule} Refills: 3 Ordered: 4 Luis Daniel Hill MD Start : 4 End : 4 Inactive LOESTRIN 2012-05 Lubna Adams 1{Table QD LOESTRIN 05/29 (21), 2-05-15 Mathew t} 05/29 (21), 1-20MG-MCG 00:00: 00:00 INFORMATION TECHNOLOGY INSTRUCTOR 1-20MG-MCG (Oral 00 :00 (Oral Tablet) Tablet) 1 (one) Tablet daily for 28 days Quantity: 1 {package(s )} Refills: 0 Ordered: 17-Apr-2013 Lubna Sosa Start : 17-Apr-2013 End : 15-May-2013 Inactive ondansetron No 1 Q8H ondansetro 8 mg n 8 mg disintegrat disintegra ing tablet ting Place [address] 1 every 8 tablet hours by every 8 translingua hours by l route for translingu 2 days. al route for 2 days. lidocaine 5 No lidocaine % topical 5 % ointment topical APPLY TO ointment LABIA BY APPLY TO TOPICAL LABIA BY ROUTE 1-4 TOPICAL TIMES DAILY ROUTE 1-4 NEEDED TIMES DAILY NEEDED tramadol 50 No 1 Q6H tramadol mg tablet 50 mg Take 1 tablet tablet Take 1 every 6 tablet hours by every 6 oral route hours by as needed oral route for 5 days. as needed for 5 days. valacyclovi No 1 Q1D valacyclov r 1 gram ir 1 gram tablet Take tablet 1 tablet Take 1 every day tablet by oral every day route for 5 by oral days. route for 5 days. ibuprofen No 1 TID ibuprofen 600 mg 600 mg tablet Take tablet 1 tablet 3 Take 1 times a day tablet 3 by oral times a route as day by needed for oral route 10 days. as needed for 10 days. 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 Having some mil d somnolen c e, slowe d thinking , dizzines s , nausea , and sensatio n of palpitat i ons. Lab s overall normal Toxicolo g y consulte d . Apprecia t e their recs: - agree with CMP , CBC, upreg, ua, etoh level, salicyla t e level, and TCA screen - medicall y stable from toxicolo g y perspect i ve - continuo u s cardia c monitori n g during medical observat i on - ready fo r d/c of monitors - There is no antidote or role for enhanced eliminat i on - Therapy is largely supporti v e - if seizures develop they should b e treated with benzodia z epines. If seizures persist may use barbitur a moncho or propofol . - if hypotens i on develops it shoul d be treated with normal saline bolus initiall y and may require pressors (norepi or dopamine ) - if signs of worsenin g cardiac or neuro toxicity develop you coul d consider lipid emulsion therapy although there is only limited evidence to support this. Suicide Suicide [id number] Active Overvie w: attempt attempt Talked 00:00: with mom 00 via phone. She has given verbal permissi o n for psychiat r y to see patient. -Sitter at bedside -Hold lamictal . Will continue lexapro for now -IVC'd. Going to [facility] in [facility] e Elevated Elevated [id number] Active Overv iew: TSH TSH -Low TSH , 00:00: normal 00 free T4. No goite r or neck tenderne s s on exam. Concern for subclini c al hypothyr o idism - called Peds endocrin o edilia, Dr Mirta newell, for her opinion: -No subclini c al hypothyr o id clarissa p needed unless TSH > 10 or goite r on exam -No antibody testing unless goiter o n exam -Patient is obese . There ar e reports of obesity leading to mild TSH elevatio n s (and not the other wa y around) -Suggest e d repeat TSH in a few week s in outpatie n t setting. If TSH > 10, TSH increasi n g, or signs of goiter then she can be referred to [facility]. 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 Back pain Back pain Problem Active Avendano, Nell T Problem Inactiv Desha, Weight Weight e Francheska C BMI (body BMI (body Problem Active Avendano, mass mass Nell T index), index), pediatric, pediatric, 95-99% for 95-99% for age age (Renamed (Renamed from Body from Body mass index mass index equal to or equal to or greater greater than 95th than 95th percentile percentile for age in for age in pediatric pediatric patient) patient) Bronchitis Bronchitis Problem Active Avendano, Nell T Cleft lip Cleft lip Problem Active Avendano, Nell T Dysmenorrhe Dysmenorrhe Problem Active Avendano, a a Nell T Fatigue Fatigue Problem Active Avendano, Nell T Feared Feared Problem Active Avendano, complaint complaint Nell T without without diagnosis diagnosis FEMALE FEMALE Problem Inactiv Mathew ADOLESCENT ADOLESCENT e Kaylyn WELL VISIT WELL VISIT (V20.2) Flu Flu Problem Inactiv Mathew, HL7.CCDAR2 e Kaylyn FLU - FLU - Problem Inactiv Mathew, INFLUENZA INFLUENZA e Kaylyn (Full) (Full) (V04.81) [id number] Gastritis Gastritis Problem Active Avendano, Nell T Gestational Gestational Problem Inactiv Desha, Age Age e Francheska C Grief Grief Problem Inactiv Desha, HL7.CCDAR2 e Francheska C H/O suicide H/O suicide Problem Inactiv Desha, attempt attempt HL7.CCDAR2 e Francheska C Headache Headache Problem Active Avendano, Nell T Injury of Injury of Problem Active Avendano, left foot left foot Nell T including including toes toes Mononucleos Mononucleos Problem Inactiv Gachuz, is is e Diana [place] Problem Inactiv Desha, Complicatio Complicatio e Francheska C ns ns Pharyngitis Pharyngitis Problem Inactiv Desha, HL7.CCDAR2 e Francheska C Rhinitis Rhinitis Problem Active Avendano, Nell T Right ankle Right ankle Problem Active Avendano, pain pain Nell T Right knee Right knee Problem Inactiv Desha, pain pain e Francheska C Sinusitis Sinusitis Problem Active Avendano, Nell T Sore throat Sore throat Problem Inactiv Mathew, HL7.CCDAR2 e Kaylyn Strep Strep Problem Active Avendano, throat throat Nell T exposure exposure URI (upper URI (upper Problem Inactiv Sergio, respiratory respiratory HL7.CCDAR2 e Luis Daniel A infection) infection) Xerosis Xerosis Problem Active Avendano, cutis cutis Nell T Community Community Problem Active Avendano, acquired acquired Nell T pneumonia pneumonia Nexplanon Nexplanon Problem Active Avendano, insertion insertion Nell T Flu- Flu- Problem Inactiv Coronel, Influenza Influenza HL7.CCDAR2 e Ecxaida Quadrivalen Quadrivalen t (Full) t (Full) [id number] (Renamed (Renamed from Need from Need for for immunizatio immunizatio n against n against influenza) influenza) MENACTRA MENACTRA Problem Inactiv Coronel, (V03.89) 93671 e Ecxaida 11731 Depression Depression Problem Active Avendano, Nell T Irregular Irregular Problem Active Avendano, periods periods Nell T Prevnar Prevnar Problem Inactiv Jessica, (19763) (98353) HL7.CCDAR2 e Boo Sánchez (Renamed (Renamed from Need from Need for for vaccination vaccination against against Streptococc Streptococc us us pneumoniae) pneumoniae) Encounter Encounter Problem Inactiv Desha, for initial for initial HL7.CCDAR2 e Anayeli ca C prescriptio prescriptio n of n of Nexplanon Nexplanon Right Right Problem Inactiv Desha, otitis otitis e Francheska C media media Right acute Right acute Problem Inactiv Desha, serous serous e Francheska C otitis otitis media media DUB DUB Problem Active Avendano, (dysfunctio (dysfunctio Nell T nal uterine nal uterine bleeding) bleeding) UTI UTI Problem Active O'Lynne, (urinary (urinary Felicitas tract tract infection) infection) Left low Left low Problem Active Avendano, back pain back pain Nell T Lower Lower Problem Active Avendano, abdominal abdominal Nell T pain pain Mononucleos Mononucleos Problem Active Avendano, is is Nell T Submandibul Submandibul Problem Active Avendano, ar ar Nell T lymphadenop lymphadenop athy athy Problem Active Avendano, Weight Weight Nell T FEMALE FEMALE Problem Inactiv Mathew, ADOLESCENT ADOLESCENT HL7.CCDAR2 e Kaylyn WELL VISIT WELL VISIT FLU - FLU - Problem Inactiv Mathew, INFLUENZA INFLUENZA HL7.CCDAR2 e Kaylyn (Full) (Full) [id number] Gestational Gestational Problem Active Avendano, Age Age Nell T MENACTRA MENACTRA Problem Inactiv Coronel, [id number] HL7.CCDAR2 e Ecxaida [place] Problem Active Avendano, Complicatio Complicatio Nell T ns ns Right acute Right acute Problem Active Avendano, serous serous Nell T otitis otitis media media Right knee Right knee Problem Active Avendano, pain pain Nell T Right Right Problem Active Avendano, otitis otitis Nell T media media Nexplanon Nexplanon Problem Active Avendano, in place in place Nell T Breast pain Breast pain Problem Active Avendano, Nell T Costochondr Costochondr Problem Active Avendano, itis itis Nell T Elevated Elevated Problem Active Avendano, LFTs LFTs Nell T History of History of Problem Active O'Lynne, herpes herpes Felicitas simplex simplex infection infection HSV-1 HSV-1 Problem Active Avendano, (herpes (herpes Nell T simplex simplex virus 1) virus 1) infection infection Leukopenia Leukopenia Problem Active Avendano, Nell T Mouth sores Mouth sores Problem Active Avendano, Nell T Nipple Nipple Problem Active Avendano, discharge discharge Nell T Rash Rash Problem Active Avendano, Nell T S/P biopsy S/P biopsy Problem Active Avendano, Nell T Strep Strep Problem Active Avendano, pharyngitis pharyngitis Nell T Procedures Procedure Date / Time Performed Performing Clinician Yoel soto pulse oximetry (PROC) 2020-02-15 00:00:00 pulse oximetry (PROC) 2020-02-05 00:00:00 XRAY CHEST 1 VIEW 2019-10-31 01:09:22 Filemon Pineda STREP A, RAPID MOLECULAR 2019-10-31 00:32:00 Filemon Pineda URINALYSIS, MICROSCOPIC 2019-07-04 02:10:00 [place], Linda Chijioke URINALYSIS, COMPLETE 2019-07-04 02:10:00 [place], Linda Chijioke URINALYSIS, COMPLETE 2019-07-04 02:10:00 [place], Linda Chijioke CBC WITH DIFFERENTIAL 2019-07-04 02:04:00 [place], Linda Chijioke MANUAL DIFFERENTIAL 2019-07-04 02:04:00 [place], Linda Chijioke CBC WITH DIFFERENTIAL 2019-07-04 02:04:00 [place], Linda Chijioke CHLAMYDIA/GC DNA PROBE 2019-05-23 05:20:00 Paulino Bob SCREEN, URINE 2019-05-23 05:19:00 Paulino Bob URINALYSIS, MICROSCOPIC 2019-05-23 05:19:00 Paulino Bob URINALYSIS, COMPLETE 2019-05-23 05:19:00 Paulino Bob URINALYSIS, COMPLETE 2019-05-23 05:19:[address] ABDOMEN PELVIS W IV CONTRAST 2019-03-27 05:32:[address] SPINE CERVICAL WO IV 2019-03-27 05:31:[address] HEAD W/O IV CONTRAST 2019-03-27 05:31:27 Cintia Gong XRAY SPINE THORACIC 2 VIEWS 2019-03-27 05:06:48 Cintia Gong STREP GROUP A AG SCREEN 2019-03-27 04:50:00 Cintia Gong SCREEN, URINE 2019-03-27 04:29:00 Cintia Gong URINALYSIS, COMPLETE 2019-03-27 04:29:00 Cintia Gong URINALYSIS, COMPLETE 2019-03-27 04:29:00 Cintia Gong COMPREHENSIVE METABOLIC PANEL 2019-03-27 04:17:00 Hetal Gong an CBC WITH DIFFERENTIAL 2019-03-27 04:17:00 Cintia Gong CBC WITH DIFFERENTIAL 2019-03-27 04:17:00 Cintia Gong COMPREHENSIVE METABOLIC PANEL 2019-02-21 17:01:00 Torrey Sanchez CBC WITH DIFF 2019-02-21 17:01:00 Ping Sanchez SCREEN, URINE 2019-02-21 16:38:00 Ping Sanchez e URINE MACROSCOPIC 2019-02-21 16:38:00 Ping Sanchez URINE MICROSCOPIC 2019-02-21 16:38:00 Ping Sanchez DRUG SCREEN, URINE 2019-02-21 16:38:00 Ping Sanchez COMPREHENSIVE METABOLIC PANEL 2018-10-11 15:31:00 Hetal Gong an CBC WITH DIFF 2018-10-11 15:31:00 Cintia Gong WET PREP (SALINE) 2018-10-11 15:31:00 Shoaib Gongn SCREEN, URINE 2018-10-11 14:17:00 ShreyaJenny riossara CULTURE, URINE 2018-10-11 14:17:00 Cintia Gong URINE MACROSCOPIC 2018-10-11 14:17:00 Jessica Cashe Juan Luissara URINE MICROSCOPIC 2018-10-11 14:17:00 Jenny Cashsara CHLAMYDIA/GC DNA PROBE 2018-10-11 14:17:[address] ABDOMEN PELVIS W/O IV 2018-09-30 08:47:37 STEFFANY Ashton CBC WITH DIFF 2018-09-30 08:22:00 Mayra Ashton BASIC METABOLIC PANEL 2018-09-30 08:22:00 Mayra Ashton SCREEN, URINE 2018-09-30 05:12:00 Mayra Ashton CULTURE, URINE 2018-09-30 05:12:00 Mayra Ashton URINE MACROSCOPIC 2018-09-30 05:12:00 Mayra Ashton URINE MICROSCOPIC 2018-09-30 05:12:00 Mayra Ashton US PELVIS NON OB 2018-09-04 08:56:28 Jenny Cash US TRANSVAGINAL US NON OB 2018-09-04 08:56:[address] ABDOMEN PELVIS W IV CONTRAST 2018-09-04 06:58:10 Hany Mckoy COMPREHENSIVE METABOLIC PANEL 2018-09-04 05:50:00 Hany Mckoy nry LIPASE 2018-09-04 05:50:00 Hany Mckoy CBC WITH DIFF 2018-09-04 05:50:00 Hany Mckoy WET PREP (SALINE) 2018-09-04 05:50:00 Hany Mckoy SCREEN, URINE 2018-09-04 01:49:00 Yvonne Bartlett URINE MACROSCOPIC 2018-09-04 01:49:00 Yvonne Bartlett URINE MICROSCOPIC 2018-09-04 01:49:00 Yvonne Bartlett CHLAMYDIA/GC DNA PROBE 2018-09-04 01:49:00 Hany Mckoy D-DIMER, QUANTITATIVE 2018-06-08 10:20:00 NormJaquelin marroquin BASIC METABOLIC PANEL 2018-06-08 06:29:00 Delano Paris HEPATIC FUNCTION PANEL 2018-06-08 06:29:00 Frank Radha Allylars richy MAGNESIUM 2018-06-08 06:29:00 Delano Paris PHOSPHORUS 2018-06-08 06:29:00 Delano Paris CBC 2018-06-08 06:29:00 Vinny Bailey Maricruz BASIC METABOLIC PANEL 2018-06-07 18:39:00 Vinny Bailey Re nee MAGNESIUM 2018-06-07 18:39:00 Vinny Bailey Maricruz PHOSPHORUS 2018-06-07 18:39:00 Vinny Bailey CBC W/ AUTO DIFF 2018-06-07 18:39:00 Delano Paris SLIDE REVIEW 2018-06-07 18:39:00 Delano Paris DERMATOPATHOLOGY ORDER 2018-06-06 15:54:00 Frederic Clyde HSV PCR 2018-06-06 15:26:00 Frederic Clyde HSV 1,2 PCR NOT BLOOD 2018-06-06 15:26:00 Frederic Clyde HSV PCR 2018-06-06 11:26:00 Peña Callahan CHLAMYDIA/GONORRHOEAE ABRAHAM 2018-06-06 11:26:00 Buddy Baird HSV 1,2 PCR NOT BLOOD 2018-06-06 11:26:00 Peña Callahan TOXICOLOGY SCREEN, URINE 2018-06-06 06:42:00 Vinny Bailey , URINE 2018-06-06 06:42:00 Vinny Bailey Maricruz BASIC METABOLIC PANEL 2018-06-06 06:26:00 Vinny Bailey Re nee HEPATIC FUNCTION PANEL 2018-06-06 06:26:00 Vinny Bailey R enee LIPASE 2018-06-06 06:26:00 Vinny Bailey Maricruz MAGNESIUM 2018-06-06 06:26:00 Vinny Bailey Maricruz PHOSPHORUS 2018-06-06 06:26:00 Vinny Bailey Maricruz CBC 2018-06-06 06:26:00 Vinny Bailey D-DIMER, QUANTITATIVE 2018-06-06 06:26:00 Vinny Bailey Re nee FIBRINOGEN 2018-06-06 06:26:00 Vinny Bailey PROTIME-INR 2018-06-06 06:26:00 Vinny Bailey APTT 2018-06-06 06:26:00 Vinny Bailey HEPATITIS B SURFACE ANTIGEN 2018-06-06 06:26:00 Camilla Bailey nna Maricruz HEPATITIS B SURFACE ANTIBODY 2018-06-06 06:26:00 Sunny Bailey ABO/RH 2018-06-06 06:26:00 Vinny Bailey HEPATITIS B CORE ANTIBODY, 2018-06-06 06:26:00 Rodri Bailey na Maricruz TOTAL HEPATITIS C ANTIBODY 2018-06-06 06:26:00 Vinny Bailey HIV ANTIGEN/ANTIBODY COMBO 2018-06-06 06:26:00 Peña Callahan ECG 12-LEAD 2018-06-06 03:08:10 Vinny Bailey ETHANOL 2018-06-06 02:57:00 Vinny Bailey RECREATION THERAPY EVAL AND 2018-06-06 01:42:[address] ABDOMEN PELVIS W IV CONTRAST 2018-06-05 10:14:45 Filemon Pineda LACTIC ACID 2018-06-05 09:23:00 Filemon Pineda CULTURE, BLOOD 2018-06-05 09:23:00 Filemon Pineda SCREEN, URINE 2018-06-05 07:10:00 Filemon Pineda CULTURE, URINE 2018-06-05 07:10:00 Paulino Bob URINE MACROSCOPIC 2018-06-05 07:10:00 Filemon Pineda URINE MICROSCOPIC 2018-06-05 07:10:00 Filemon Pineda CHLAMYDIA/GC DNA PROBE 2018-06-05 07:10:00 Paulino Bob LACTIC ACID 2018-06-05 05:29:00 Filemon Pineda CBC WITH DIFF 2018-06-05 05:29:00 Filemon Pineda SED RATE (ESR) 2018-06-05 05:29:00 Paulino Bob BASIC METABOLIC PANEL 2018-06-05 05:29:00 Filemon Pineda PT (PROTHROMBIN TIME) WITH INR 2018-06-05 05:29:00 Filemon Pineda PTT 2018-06-05 05:29:00 Filemon Pineda C-REACTIVE PROTEIN, HIGH 2018-06-05 05:29:00 Paulino Bob SENSITIVITY CULTURE, BLOOD 2018-06-05 05:29:00 Filemon Pineda WET PREP (SALINE) 2018-06-05 05:29:00 Filemon Pineda INCISION AND DRAINAGE 2018-05-30 17:11:03 Sav Loredo HEMOGLOBIN A1C (GLYCOSYLATED) 2018-05-05 16:40:00 Steph Maher HIV 1/0/2/ABS-ICMA, W/ WB 2018-05-05 16:40:00 Shaina Maher CONFIRM (LC) RPR PANEL 2018-05-05 16:40:00 Shaina Maher JULI-MITCHELL VIRUS ANTIBODY 2018-04-21 18:08:00 Clifford Maher ah PANEL SCREEN, URINE 2018-04-06 02:59:00 Alley Hernadez URINE MACROSCOPIC 2018-04-06 02:59:00 Alley Hernadez URINE MICROSCOPIC 2018-04-06 02:59:00 Alley Hernadez COMPREHENSIVE METABOLIC PANEL 2018-04-06 02:46:00 Satya Chri dequan LIPASE 2018-04-06 02:46:00 Alley Hernadez CBC WITH DIFF 2018-04-06 02:46:00 Alley Hernadez COMPREHENSIVE METABOLIC PANEL 2018-04-05 20:36:00 Amber Luna PHOSPHORUS 2018-04-05 20:36:00 Luciana Luna TSH 2018-04-05 20:36:00 Luciana Luna PROLACTIN 2018-04-05 20:36:00 Luciana Luna T4, FREE 2018-04-05 20:36:00 Luciana Luna T3 2018-04-05 20:36:00 Luciana Luna Lidocaine injection (J2001) 2017-05-26 00:00:00 Erica Mclaughlin Nexplanon implant (J7307) 2017-05-26 00:00:00 Erica Mclaughlin Compression bandage, roll 2017-05-26 00:00:00 Erica Mclaughlin (S8431) Depo Provera (J1050) 2017-04-27 00:00:00 Faustina Felicitas X-RAY EXAM OF THORACIC SPINE 2 2017-04-27 00:00:00 Faustina, Chelse a VIEW (89298) X-RAY EXAM LOWER SPINE 2-3 2017-04-27 00:00:00 Faustina, Felicitas VIEWS (84532) IMMUNIZ ADMN, EA AD VAC 2017-04-26 00:00:00 Faustina Felicitas SNGL/COMBO (95129) IMMUNIZ ADMNIN, 1 VAC, 2017-04-26 00:00:00 Faustina, Felicitas SNGL/COMBO (16308) PREVNAR 13 2017-04-26 00:00:00 Felicitas Weems MENINGOCOCCAL CONJ VACCINE, IM 2017-04-26 00:00:00 Marietta Weemsse a (45297) IM Quadrivalent Influenza 2017-04-26 00:00:00 Faustina Felicitas vaccine to patient 3 years and over - PRIVATE (28098) Albuterol Neb (J7613) 2017-02-23 00:00:00 Marietta Weemssea Albuterol Neb (J7613) 2017-02-19 00:00:00 Shaina Maher X-RAY EXAM OF THORACIC SPINE 2 2016-03-17 00:00:00 Hardy Luna VIEW (46798) X-RAY EXAM LOWER SPINE 2-3 2016-03-17 00:00:00 Courtney Luna T VIEWS (66509) XR scoliosis survey (69936) 2016-03-17 00:00:00 Amadou Luna T IMMUNIZ ADMNIN, 1 VAC, 2013-05-26 00:00:00 Shaina Maher SNGL/COMBO (73979) FLU VAC, SPLIT, >3 YEARS, 2013-05-26 00:00:00 Shaina Maher INTRAMUSC (85620) X-ray 2012-05-11 00:00:00 Kaylyn Carmona X-ray 2012-05-11 00:00:00 Nell Avendano Myringotomy with Tube Placement 2000-11-08 00:00:00 Nell Avendano Results Test Description Test Time Test Comments Text Results Atomic Results Result Comments CHLAMYDIA/N. GONORRHOEAE RNA, TMA, UROGENITAL 2020-02-19 15:54:0 0 Test Item Value Reference Range Comments CHLAMYDIA TRACHOMATIS RNA, TMA, UROGENITAL (test code = NOT DETECTED NOT DETECTED 90909-1) NEISSERIA GONORRHOEAE RNA, TMA, UROGENITAL (test code = NOT DETECTED NOT DETECTED 11039-0) HERPES SIMPLEX VIRUS CULTURE W/RFL TO [id number] 15:54:00 Test Item Value Reference Range Comments SOURCE: (test code = NOT GIVEN 12607-7) HSV CULTURE: (test code = LGX399 Test n ot performed. No suitable 5859-4) specimen receive d. CULTURE, URINE, [id number] 15:54:00 Test Item Value Reference Range Comments SOURCE: (test code = 62800-0) URINE, CLEAN CATCH STATUS: (test code = 8251-1) FINAL RESULT: (test code = 630-4) No G rowth SURESWAB(R) TRICHOMONAS VAGINALIS RNA, QL, [id number] 15:54:00 Test Item Value Reference Range Comments SURESWAB(R) TRICHOMONAS NOT DETECTED NOT DETECTED For matheus tional information, VAGINALIS RNA, QL, TMA (test ple ase refer code = 57463-2) [email or web address] on.[email or web address] /Trichomona stma(This link i s being provided for informational/ed ucational purposes only.) TEST IN QUESTION - NO TEST FOR [id number] 15:54:00 Test Item Value Reference Range Comments QUESTION/PROBLEM: No test(s) are indicated on (test code = the requisition for 42157967) thefollowing spe cimen(s). SPECIMEN(S) Specimen ES unneeded RECEIVED: (test code = 44021576) STREP A, RAPID [id number] 01:21:00 Test Item Value Reference Range Comments Strep A by PCR (test code = Positive Negative, Invalid, I ndeterminate [id number]) BERENICE (test code = BERENICE) Lab Interpretation (test code = Abnormal 63246-1) CBC WITH [id number] 21:38:00 Test Item Value Reference Range Comments WBC (White Blood Cell Count) (test code = 10.93 k/uL 4.50- 11.00 k/uL 6690-2) RBC (Red Blood Cell Count) (test code = 789-8) 5.39 M/uL 3 .80- 5.20 M/uL Hemoglobin (test code = 718-7) 14.7 g/dL 12-16 Hematocrit (test code = 4544-3) 43.4 % 35-47 MCV (Mean Corpuscular Volume) (test code = 80.5 fL 80-10 0 787-2) MCH (Mean Corpuscular Hemoglobin) (test code = 27.3 pg 2 6-34 785-6) MCHC (Mean Corpuscular Hemoglobin Concentration) 33.9 g/dL 32-36 (test code = 786-4) RDW (Red Cell Distribution Width) (test code = 13.2 % 1 1.5-14.5 788-0) Platelet Count (test code = 777-3) 374 k/uL 150- 440 k/uL Lab Interpretation (test code = 62999-7) Abnormal MANUAL [id number] 21:38:00 Test Item Value Reference Range Comments Neutrophils (%) (test code = 16083-2) 61 % Lymphocytes (%) (test code = 736-9) 30 % Monocytes (%) (test code = 5905-5) 6 % Eosinophils (%) (test code = 713-8) 2 % Basophils (%) (test code = 706-2) 1 % Absolute Neutrophils (#) (test code = 07563-8) 6.66 k/uL 1 .80- 7.70 k/uL Absolute Lymphocytes (#) (test code = 731-0) 3.27 k/uL 1.0 0- 4.80 k/uL Absolute Monocytes (#) (test code = 742-7) 0.65 k/uL 0.00- 0.80 k/uL Absolute Eosinophils (#) (test code = 711-2) 0.21 k/uL 0.0 0- 0.50 k/uL Absolute Basophils (#) (test code = 704-7) 0.10 k/uL 0.00- 0.20 k/uL WBC Morphology (test code = 15925-2) Normal RBC Morphology (test code = 6742-1) Normal Platelet Morphology (test code = 10939-7) Normal URINALYSIS, [id number] 21:38:00 Test Item Value Reference Range Comments RBC, Urine (test code = 52138-5) 5-19 None Seen /HPF WBC, Urine (test code = 5821-4) Too Numerous To Count None Seen /HPF Squamous Epithelial Cells, Urine (test Few None Seen /HPF code = 5787-7) Bacteria, Urine (test code = 00470-7) Many None Seen Lab Interpretation (test code = Abnormal 71906-3) URINALYSIS, [id number] 21:27:00 Test Item Value Reference Range Comments Color, Urine (test code = 5778-6) Yellow Colorless, Yel low, or Straw Clarity, Urine (test code = 5767-9) Clear Clear Specific [place], Urine (test code = >=1.030 1.003-1.040 5811-5) pH, Urine (test code = 5803-2) 6.0 5.0-8.0 Hemoglobin, Urine (test code = 5794-3) 2+ Negative Bilirubin, Urine (test code = 5770-3) Negative Negative Urobilinogen, Urine (test code = Normal Normal 12421-1) Ketones, Urine (test code = 5797-6) Trace Negative Glucose, Urine (test code = 5792-7) Negative Negative Nitrites, Urine (test code = 5802-4) Positive Negative Leukocyte Esterase, Urine (test code = 2+ Negative 5799-2) Protein, Urine (test code = 5804-0) 2+ Negative Lab Interpretation (test code = Abnormal 43237-5) CHLAMYDIA/GC DNA [id number] 01:57:00 Test Item Value Reference Range Comments GC Amplified Probe (test code = 20197-4) Not Detected Not Det ected Chlamydia Amplified Probe (test code = 51575-0) Not Detected Not Detected BERENICE (test code = BERENICE) Lab Interpretation (test code = 10301-0) Normal URINALYSIS, [id number] 00:41:00 Test Item Value Reference Range Comments RBC, Urine (test code = 98552-2) 1-4 None Seen /HPF WBC, Urine (test code = 5821-4) 5-19 None Seen /HPF Squamous Epithelial Cells, Urine (test code = Moderate No ne Seen /HPF 5787-7) Bacteria, Urine (test code = 26961-2) Few None Seen Lab Interpretation (test code = 71326-5) Abnormal SCREEN, [id number] 00:31:00 Test Item Value Reference Range Comments HCG, Urine (test code = 2106-3) Negative Negative Lab Interpretation (test code = 16860-8) Normal URINALYSIS, [id number] 00:27:00 Test Item Value Reference Range Comments Color, Urine (test code = 5778-6) Yellow Colorless, Yel low, or Straw Clarity, Urine (test code = 5767-9) Clear Clear Specific [place], Urine (test code = 1.025 1.003-1.040 5811-5) pH, Urine (test code = 5803-2) 6.0 5.0-8.0 Hemoglobin, Urine (test code = 5794-3) Trace Negative Bilirubin, Urine (test code = 5770-3) Negative Negative Urobilinogen, Urine (test code = Normal Normal 22679-0) Ketones, Urine (test code = 5797-6) Negative Negative Glucose, Urine (test code = 5792-7) Negative Negative Nitrites, Urine (test code = 5802-4) Negative Negative Leukocyte Esterase, Urine (test code = 1+ Negative 5799-2) Protein, Urine (test code = 5804-0) Negative Negative Lab Interpretation (test code = Abnormal 20066-8) STREP GROUP A AG [id number] 00:11:00 Test Item Value Reference Range Comments Streptococcus Group A Ag (test Negative Negative N egative antigen test for code = 16121-8) Streptococcus py ogenes (Group A);Culture resul t to follow. Negative antigen test for Streptococcus py ogenes (Group A) Lab Interpretation (test code = Normal 31262-1) XRAY SPINE THORACIC 2 [id number] 00:11:00Findings and impression: 2 views of thoracic spine demonstrate no acute fracture or dislocation. Alignment is anatomic. Vertebral body heights are maintained. Lungs are clear. Reading Doctor: Harry Bob Electronic Signature by: Harry Bbo Examination: XRAY SPINE THORACIC 2 VIEWS INDICATION:fall COMPARISON: None Interface, Radresults_Incoming - 03/27/2019 12:14 AM ESTExamination: XRAY SPINE THORACIC 2 VIEWS INDICATION: fall COMPARISON: None IMPRESSION Findings and impression: 2 views of thoracic spine demonstrate no acute fracture or dislocation. Alignment is anatomic. Vertebral body heights aremaintained. Lungs are clear. Reading Doctor: Harry Bob Electronic Signature by: Elaine BobPROGRESS [facility]ST [facility]ITALENS[facility]ABOLIC PANEL 2019-03-27 00:04:00 Test Item Value Reference Range Comments Sodium (test code = 2951-2) 136 mEq/L 136- 145 mEq/L Potassium (test code = 2823-3) 3.8 mEq/L 3.4- 4.4 mEq/L Chloride (test code = 2075-0) 104 mEq/L 98- 107 mEq/L CO2 (test code = 2027-9) 19 mEq/L 22- 29 mEq/L Calcium (test code = 86616-6) 9.4 mg/dL 8.4-10.2 Glucose (test code = 2345-7) 148 mg/dL 70-105 BUN (test code = 3094-0) 6 mg/dL 7-19 Creatinine (test code = 2160-0) 0.70 mg/dL 0.57-1.11 Glomerular Filtration Rate (test code 126 mL/Min/1.73 m2 >=59 mL /Min/1.73 m2 = 89283-5) Protein, Total (test code = 2885-2) 7.3 g/dL 6.4-8.3 Albumin (test code = 1751-7) 4.3 g/dL 3.5-5.2 Bilirubin, Total (test code = 1975-2) 0.5 mg/dL 0.1-1.2 Alk Phosphatase (test code = 6768-6) 93 U/L 40-150 SGOT (AST) (test code = 1920-8) 44 U/L 5-34 SGPT (ALT) (test code = 1742-6) 36 U/L 0-55 Anion Gap (test code = 90859-2) 13 mEq/L 4- 12 mEq/L Bun:Creat Ratio (test code = 3097-3) 8.57 Osmo (Calc'd) (test code = 97166-3) 283 mOsm/kg mOsm/kg Globulin (Calc'd) (test code = 3.0 g/dL 05012-1) A:G Ratio (test code = 1759-0) 1.43 Lab Interpretation (test code = Abnormal 56641-3) CBC WITH [id number] 23:47:00 Test Item Value Reference Range Comments WBC (White Blood Cell Count) (test code = 19.12 k/uL 4.50- 11.00 k/uL 6690-2) RBC (Red Blood Cell Count) (test code = 789-8) 4.76 M/uL 3 .80- 5.20 M/uL Hemoglobin (test code = 718-7) 13.2 g/dL 12-16 Hematocrit (test code = 4544-3) 38.8 % 35-47 MCV (Mean Corpuscular Volume) (test code = 81.5 fL 80-10 0 787-2) MCH (Mean Corpuscular Hemoglobin) (test code = 27.7 pg 2 6-34 785-6) MCHC (Mean Corpuscular Hemoglobin Concentration) 34.0 g/dL 32-36 (test code = 786-4) RDW (Red Cell Distribution Width) (test code = 13.3 % 1 1.5-14.5 788-0) Platelet Count (test code = 777-3) 214 k/uL 150- 440 k/uL MPV (Mean Platelet Volume) (test code = 01408-8) 10.1 fL 7.4-10.6 Neutrophils (%) (test code = 40472-2) 85 % Lymphocytes (%) (test code = 736-9) 9 % Monocytes (%) (test code = 5905-5) 4 % Eosinophils (%) (test code = 713-8) 1 % Basophils (%) (test code = 706-2) 0 % Immature Granulocytes (%) (test code = 84440-3) 1 % Absolute Neutrophils (#) (test code = 86617-5) 16.26 k/uL 1 .80- 7.70 k/uL Absolute Lymphocytes (#) (test code = 731-0) 1.75 k/uL 1.0 0- 4.80 k/uL Absolute Monocytes (#) (test code = 742-7) 0.75 k/uL 0.00- 0.80 k/uL Absolute Eosinophils (#) (test code = 711-2) 0.15 k/uL 0.0 0- 0.50 k/uL Absolute Basophils (#) (test code = 704-7) 0.05 k/uL 0.00- 0.20 k/uL Absolute Immature Granulocytes (#) (test code = 0.16 k/uL 0 k/uL 83555-8) Lab Interpretation (test code = 35239-0) Abnormal SCREEN, [id number] 23:41:00 Test Item Value Reference Range Comments HCG, Urine (test code = 2106-3) Negative Negative Lab Interpretation (test code = 93278-4) Normal URINALYSIS, [id number] 23:40:00 Test Item Value Reference Range Comments Color, Urine (test code = 5778-6) Yellow Colorless, Yel low, or Straw Clarity, Urine (test code = 5767-9) Clear Clear Specific [place], Urine (test code = 1.015 1.003-1.040 5811-5) pH, Urine (test code = 5803-2) 7.0 5.0-8.0 Hemoglobin, Urine (test code = 5794-3) Negative Negative Bilirubin, Urine (test code = 5770-3) Negative Negative Urobilinogen, Urine (test code = Normal Normal 43129-0) Ketones, Urine (test code = 5797-6) Negative Negative Glucose, Urine (test code = 5792-7) Negative Negative Nitrites, Urine (test code = 5802-4) Negative Negative Leukocyte Esterase, Urine (test code = Negative Negative 5799-2) Protein, Urine (test code = 5804-0) Negative Negative BERENICE (test code = BERENICE) Lab Interpretation (test code = Normal 67802-3) COMPREHENSIVE METABOLIC [id number] 13:34:25 Test Item Value Reference Range Comments Sodium (test code = 2951-2) 141 mEq/L 136- 145 mEq/L Potassium (test code = 3.8 mEq/L 3.4- 4.4 mEq/L 2823-3) Chloride (test code = 107 mEq/L 98- 107 mEq/L 2074-0) Bicarbonate (TCO2) (test 23 mEq/L 22- 29 mEq/L code = 2027-9) Calcium (test code = 10.0 mg/dL 8.4-10.2 Radiologic Contrast 64513-7) Media may alter Calcium levels for 48 ho urs after consumptio n. Glucose (test code = 2345-7) 79 mg/dL 70-105 BUN (test code = 3094-0) 6 mg/dL 7-19 Protein, Total (test code = 8.2 g/dL 6.4-8.3 2885-2) Albumin (test code = 1751-7) 4.8 g/dL 3.5-5.2 Bilirubin, Total (test code 0.3 mg/dL 0.2-1.2 = 1974-2) Alkaline Phosphatase (test 94 U/L 40-150 code = 6768-6) AST (SGOT) (test code = 18 U/L 5-34 1920-8) Creatinine (test code = 0.73 mg/dL 0.57-1.11 2160-0) Anion Gap (calc.) (test code 11 mEq/L 4- 12 mEq/L = 40434-1) ALT (SGPT) (test code = 25 U/L 0-55 1742-6) BUN/Creatinine (test code = 8.2 mg/dL 3097-3) Osmolality (calc) (test code 278 mOsmol/kg mOsmol/kg = 73233-5) Globulin (calc.) (test code 3.4 g/dL = 84257-9) Albumin / Globulin (test 1.41 code = 1759-0) GFR, non-AA, (est.) (test >90 >59 mL/Min/1.73 m2 code = 80495-1) GFR, AA, (est.) (test code = >90 >59 mL/Min/1.73 m2 73859-0) Lab Interpretation (test Abnormal code = 69540-9) CBC WITH [id number] 13:11:42 Test Item Value Reference Range Comments WBC (test code = 6690-2) 8.55 k/uL 4.5- 12.5 k/uL RBC (test code = 789-8) 5.36 M/uL 4.2- 5.4 M/uL Hemoglobin (test code = 718-7) 14.9 g/dL 11.2-15.8 Hematocrit (calc.) (test code = 4544-3) 44.1 % 35-45 MCV (test code = 787-2) 82.3 fL 81-99 MCH (test code = 785-6) 27.8 pg 27-31 MCHC (calc.) (test code = 786-4) 33.8 g/dL 33-37 RDW (test code = 788-0) 12.2 % 11.5-14.5 Platelet (test code = 777-3) 280 k/uL 150- 599 k/uL Mean Platelet Volume (test code = 85169-7) 10.2 fL 7.4-1 0.4 Absolute NRBC (test code = 771-6) 0.00 k/uL k/uL RBC Nucleated (test code = 42914-5) 0.0 /100 WBC /100 WBC Neutrophil (%) (test code = 47585-5) 58 % 50-70 Eosinophil (%) (test code = 713-8) 4 % 1-3 Basophil (%) (test code = 706-2) 0 % 0-2 Monocyte (%) (test code = 5905-5) 5 % 2-9 Lymphocyte (%) (test code = 736-9) 32 % 18-42 Immature Granulocytes (%) (test code = 11176-3) 1 % Neutrophil (#) (test code = 00887-6) 4.99 k/uL k/uL Lymphocyte (#) (test code = 731-0) 2.77 k/uL k/uL Monocyte (#) (test code = 742-7) 0.41 k/uL k/uL Eosinophil (#) (test code = 711-2) 0.30 k/uL k/uL Basophil (#) (test code = 704-7) 0.03 k/uL k/uL Immature Granulocytes (#) (test code = 95980-4) 0.05 k/uL k/uL Lab Interpretation (test code = 02530-1) Abnormal URINE [id number] 13:08:53 Test Item Value Reference Range Comments RBC, urine (test code = 44268-3) 6-10 /HPF WBC, urine (test code = 5821-4) 6-10 /HPF Bacteria, urine (test code = 26259-9) SMALL URINE [id number] 13:07:58 Test Item Value Reference Range Comments Appearance, urine (test code = 5767-9) CLEAR CLEAR^DEXTER AR Color, urine (test code = 5778-6) YELLOW YEL^YELLOW Specific [place], urine (test code = 5811-5) 1.010 1.0 03-1.040 pH, urine (test code = 5803-2) 7.0 5.0-8.0 Protein, urine (test code = 5804-0) NEG NEG^NEG Glucose, urine (test code = 5792-7) NEG NEG^NEG Ketones, urine (test code = 5797-6) NEG NEG^NEG Hemoglobin, urine (test code = 5794-3) TRACE NEG^NEG Urobilinogen, urine (test code = 02243-4) 0.2 0.2-1. 0 Bilirubin, urine (test code = 5770-3) NEG NEG^NEG Nitrites, urine (test code = 5802-4) NEG NEG^NEG Leukocyte Esterase, urine (test code = 5799-2) TRACE N EG^NEG Lab Interpretation (test code = 37597-1) Abnormal SCREEN, [id number] 13:05:03 Test Item Value Reference Range Comments HCG, urine (test code = 2106-3) NEG DRUG SCREEN, [id number] 13:04:43 Test Item Value Reference Range Comments Barbiturates, urine (test code = BELOW DETECTION NEG^NEG CUT OFF LIMIT 200 71726-1) LIMIT ng/mL Confirmati on on testing available at physician's request.Used for Medical Purposes Only. Benzodiazepines, urine (test code = ABOVE DETECTION NEG^NEG CUT OFF LIMIT 200 19632-6) LIMIT ng/mL Confirmati on on testing available at physician's request.Used for Medical Purposes Only. Cocaine, urine (test code = 23827-6) BELOW DETECTION NEG^NEG CUT OFF LIMIT 150 LIMIT ng/mL Confirmati on on testing available at physician's request.Used for Medical Purposes Only. Opiates, urine (test code = 52005-3) BELOW DETECTION NEG^NEG CUT OFF LIMIT 300 LIMIT ng/mL Confirmati on on testing available at physician's request.Used for Medical Purposes Only. Amphetamines, urine (test code = BELOW DETECTION NEG^NEG CUT OFF LIMIT 500 51611-3) LIMIT ng/mL Confirmati on on testing available at physician's request.Used for Medical Purposes Only. Phencyclidine (PCP), urine (test BELOW DETECTION NEG^NEG CUT OFF LIMIT 25 code = 65214-1) LIMIT ng/mL Confirmati on on testing available at physician's request.Used for Medical Purposes Only. Tetrahydrocannabinol (THC) (test BELOW DETECTION NEG^NEG CUT OFF LIMIT 50 code = 81609-9) LIMIT ng/mL Confirmati on on testing available at physician's request.Used for Medical Purposes Only. Methadone, urine (test code = BELOW DETECTION NEG^NEG CU T OFF LIMIT 300 79951-5) LIMIT ng/mL Confirmati on on testing available at physician's request.Used for Medical Purposes Only. Methylenedioxymethamphetamine (MDMA) BELOW DETECTION NEG^NEG CUT OFF LIMIT 500 (test code = 10276-8) LIMIT ng/mL Conf irmation on testing available at physician's request.Used for Medical Purposes Only. Lab Interpretation (test code = Abnormal 52026-0) D-Dimer, [id number] 10:20:00 Test Item Value Reference Range Comments D-Dimer (test code = D-Dimer) 396 ng/mL DDU <230 ng/mL DDU [id number] 06:29:00 Test Item Value Reference Range Comments WBC (test code = WBC) 7.4 10*9/L 4.5- 11.0 10*9/L RBC (test code = RBC) 4.54 10*12/L 4.00- 5.20 10*12/L HGB (test code = HGB) 12.2 g/dL 12.0- 16.0 g/dL HCT (test code = HCT) 36.5 % 36.0- 46.0 % MCV (test code = MCV) 80.5 fL 80.0- 100.0 fL MCH (test code = MCH) 26.9 pg 26.0- 34.0 pg MCHC (test code = MCHC) 33.5 g/dL 31.0- 37.0 g/dL RDW (test code = RDW) 13.2 % 12.0- 15.0 % MPV (test code = MPV) 8.4 fL 7.0- 10.0 fL Platelet (test code = Platelet) 188 10*9/L 150- 440 10*9/L Basic Metabolic [id number] 06:29:00 Test Item Value Reference Range Comments Sodium (test code = Sodium) 136 mmol/L 135- 145 mmol/L Potassium (test code = Potassium) 4.1 mmol/L 3.5- 5.0 mmol/ L Chloride (test code = Chloride) 104 mmol/L 98- 107 mmol/L CO2 (test code = CO2) 22.0 mmol/L 22.0- 30.0 mmol/L BUN (test code = BUN) 3 mg/dL 7- 21 mg/dL Creatinine (test code = Creatinine) 0.48 mg/dL 0.60- 1.00 m g/dL BUN/Creatinine Ratio (test code = 6 BUN/Creatinine Ratio) EGFR MDRD Non Af Amer (test code = EGFR MDRD >=60 >=6 0 mL/min/1.73m2 Non Af Amer) EGFR MDRD Af Amer (test code = EGFR MDRD Af >=60 >=60 mL/min/1.73m2 Amer) Anion Gap (test code = Anion Gap) 10 mmol/L 9- 15 mmol/L Glucose (test code = Glucose) 85 mg/dL 65- 179 mg/dL Calcium (test code = Calcium) 8.6 mg/dL 8.5- 10.2 mg/dL [id number] 06:29:00 Test Item Value Reference Range Comments Magnesium (test code = Magnesium) 1.6 mg/dL 1.6- 2.2 mg/dL [id number] 06:29:00 Test Item Value Reference Range Comments Phosphorus (test code = Phosphorus) 4.5 mg/dL 2.9- 4.7 mg/ dL Hepatic Function [id number] 06:29:00 Test Item Value Reference Range Comments Albumin (test code = Albumin) 3.8 g/dL 3.5- 5.0 g/dL Total Protein (test code = Total Protein) 5.9 g/dL 6.5- 8 .3 g/dL Total Bilirubin (test code = Total Bilirubin) 0.8 mg/dL 0. 0- 1.2 mg/dL Bilirubin, Direct (test code = Bilirubin, 0.70 mg/dL 0.00- 0.40 mg/dL Direct) AST (test code = AST) 143 U/L 5- 30 U/L ALT (test code = ALT) 199 U/L <=35 U/L Alkaline Phosphatase (test code = Alkaline 194 U/L 50- 1 30 U/L Phosphatase) Basic Metabolic [id number] 18:39:00 Test Item Value Reference Range Comments Sodium (test code = Sodium) 137 mmol/L 135- 145 mmol/L Potassium (test code = Potassium) 3.7 mmol/L 3.5- 5.0 mmol/ L Chloride (test code = Chloride) 105 mmol/L 98- 107 mmol/L CO2 (test code = CO2) 24.0 mmol/L 22.0- 30.0 mmol/L BUN (test code = BUN) 5 mg/dL 7- 21 mg/dL Creatinine (test code = Creatinine) 0.50 mg/dL 0.60- 1.00 m g/dL BUN/Creatinine Ratio (test code = 10 BUN/Creatinine Ratio) EGFR MDRD Non Af Amer (test code = EGFR MDRD >=60 >=6 0 mL/min/1.73m2 Non Af Amer) EGFR MDRD Af Amer (test code = EGFR MDRD Af >=60 >=60 mL/min/1.73m2 Amer) Anion Gap (test code = Anion Gap) 8 mmol/L 9- 15 mmol/L Glucose (test code = Glucose) 125 mg/dL 65- 179 mg/dL Calcium (test code = Calcium) 8.7 mg/dL 8.5- 10.2 mg/dL [id number] 18:39:00 Test Item Value Reference Range Comments Magnesium (test code = Magnesium) 1.8 mg/dL 1.6- 2.2 mg/dL [id number] 18:39:00 Test Item Value Reference Range Comments Phosphorus (test code = Phosphorus) 3.7 mg/dL 2.9- 4.7 mg/ dL CBC w/ [id number] 18:39:00 Test Item Value Reference Range Comments WBC (test code = WBC) 4.8 10*9/L 4.5- 11.0 10*9/L RBC (test code = RBC) 4.41 10*12/L 4.00- 5.20 10*12/L HGB (test code = HGB) 11.7 g/dL 12.0- 16.0 g/dL HCT (test code = HCT) 35.2 % 36.0- 46.0 % MCV (test code = MCV) 79.9 fL 80.0- 100.0 fL MCH (test code = MCH) 26.6 pg 26.0- 34.0 pg MCHC (test code = MCHC) 33.2 g/dL 31.0- 37.0 g/dL RDW (test code = RDW) 13.2 % 12.0- 15.0 % MPV (test code = MPV) 8.3 fL 7.0- 10.0 fL Platelet (test code = Platelet) 179 10*9/L 150- 440 10*9/L Neutrophil Left Shift (test code = 2+ Not Present Neutrophil Left Shift) Absolute Neutrophils (test code = Absolute 1.8 10*9/L 2.0- 7.5 10*9/L Neutrophils) Absolute Lymphocytes (test code = Absolute 2.3 10*9/L 1.5- 5.0 10*9/L Lymphocytes) Absolute Monocytes (test code = Absolute 0.2 10*9/L 0.2- 0. 8 10*9/L Monocytes) Absolute Eosinophils (test code = Absolute 0.3 10*9/L 0.0- 0.4 10*9/L Eosinophils) Absolute Basophils (test code = Absolute 0.0 10*9/L 0.0- 0. 1 10*9/L Basophils) Large Unstained Cells (test code = Large 4 % 0- 4 % Unstained Cells) Morphology [id number] 18:39:00 Test Item Value Reference Range Comments Smear Review Comments (test code = Smear Review See Comment Undefined Comments) Dermatopathology [id number] 15:54:00Case Report Surgical Pathology Report Case: [id number] Authorizing Provider:Delano Paris, Collected: 06/06/2018 1554 Ordering Location: [facility] Received:06/06/2018 1192 Pathologist: Segundo Gagnon MD Specimen:Skin, Right leg, punch [facility] Final Diagnosis Right leg,punch -Superficial dermal perivascular lymphocytic infiltrate suggestive of viral exanthem, see comment [facility] Comment The changes could also represent a drug eruption. If the patient's condition persists or worsens additional biopsy would be suggested. [facility] Clinical History Diffuse blanching erythematous macules and papules, confluent x 1 week a/w f lizeth/chills/nausea/vomiting; morbilliform drug, viral [facility] Gross Description The specimen was received labeled with the patient's name and measured 4 x 4 x 4 mm, bisected, NTR. [facility] Microscopic Description Multiple levels examined through a punch b iopsy of skin showing epidermis that has minimal alterations. Rarely noted dyskeratotic cells are seen but there is minimal spongiosis and there are no changes to the basement membrane zone, granular layer or cornified layer. There is a mild superficial dermal perivascular lymphocytic infiltrate. The l ymphocytes are mixture of small rounded cells and a few larger or transformed appearing lymphocytes.Mitotic figures are occasionally noted in these lymphocytes. Eosinophils are not noted. There is no fibrinoid necrosis of capillary iraheta. No intraluminal fibrin thrombi are seen. The deeper dermis and the appendages are uninflamed. No multi nucleated keratinocytes are found. No viral cytopathic changes are identified. [facility] EMBEDDED IMAGES [facility]HSV 1 AND 2 BY PCR, NOT BLOOD 2018-06-06 15:26:00 Test Item Value Reference Range Comments HSV 1 and 2 PCR (test code = HSV 1 and 2 PCR) Positive HSV 1 Ne gative Chlamydia/Gonorrhoeae [id number] 11:26:00 Test Item Value Reference Range Comments Chlamydia trachomatis, ABRAHAM (test code = Chlamydia Negative Negative trachomatis, ABRAHAM) Gonorrhoeae ABRAHAM (test code = Gonorrhoeae ABRAHAM) Negative Ne gative CT/GC Specimen Type (test code = CT/GC Specimen Swab Type) CT/GC Specimen Source (test code = CT/GC Specimen Vagina Source) HSV 1 AND 2 BY PCR, NOT [id number] 11:26:00 Test Item Value Reference Range Comments HSV 1 and 2 PCR (test code = HSV 1 and 2 PCR) Positive HSV 1 Ne gative Toxicology Screen, [id number] 06:42:00 Test Item Value Reference Range Comments Amphetamine Screen, Ur (test code = Amphetamine <500 ng/mL Not Applicable Screen, Ur) Barbiturate Screen, Ur (test code = Barbiturate <200 ng/mL Not Applicable Screen, Ur) Benzodiazepine Screen, Urine (test code = <200 ng/mL Not Ap plicable Benzodiazepine Screen, Urine) Cannabinoid Scrn, Ur (test code = Cannabinoid <20 ng/mL No t Applicable Scrn, Ur) Methadone Screen, Urine (test code = Methadone <300 ng/mL N ot Applicable Screen, Urine) Cocaine(Metab.)Screen, Urine (test code = <150 ng/mL Not Ap plicable Cocaine(Metab.)Screen, Urine) Opiate Scrn, Ur (test code = Opiate Scrn, Ur) =/>300 ng/mL No t Applicable Qualitative, [id number] 06:42:00 Test Item Value Reference Range Comments Test, Urine (test code = Test, Negative Negative Urine) Hepatitis B Surface [id number] 06:26:00 Test Item Value Reference Range Comments Hep B S Ab (test code = Hep B S Ab) Nonreactive Nonreactive, Grayzone Hepatitis B Surface Ab Quant (test code = <8.00 <8.00 m(IU)/mL Hepatitis B Surface Ab Quant) Hepatitis B Surface [id number] 06:26:00 Test Item Value Reference Range Comments Hepatitis B Surface Ag (test code = Hepatitis B Nonreactive Nonreactive Surface Ag) Hepatitis B Core Antibody, [id number] 06:26:00 Test Item Value Reference Range Comments Hep B Core Total Ab (test code = Hep B Core Nonreactive Nonr eactive Total Ab) Hepatitis C [id number] 06:26:00 Test Item Value Reference Range Comments Hepatitis C Ab (test code = Hepatitis C Ab) Nonreactive Nonr eactive HIV Antigen/Antibody [id number] 06:26:00 Test Item Value Reference Range Comments HIV Antigen/Antibody Combo (test code = HIV Nonreactive Nonr eactive Antigen/Antibody Combo) [id number] 06:26:00 Test Item Value Reference Range Comments ABO Grouping (test code = ABO Grouping) O POS Hepatic Function [id number] 06:26:00 Test Item Value Reference Range Comments Albumin (test code = Albumin) 3.0 g/dL 3.5- 5.0 g/dL Total Protein (test code = Total Protein) 5.1 g/dL 6.5- 8 .3 g/dL Total Bilirubin (test code = Total Bilirubin) 0.3 mg/dL 0. 0- 1.2 mg/dL Bilirubin, Direct (test code = Bilirubin, Direct) <0.10 0.00- 0.40 mg/dL AST (test code = AST) 110 U/L 5- 30 U/L ALT (test code = ALT) 106 U/L <=35 U/L Alkaline Phosphatase (test code = Alkaline 157 U/L 50- 1 30 U/L Phosphatase) Lipase [id number] 06:26:00 Test Item Value Reference Range Comments Lipase (test code = Lipase) 86 U/L 44- 232 U/L [id number] 06:26:00 Test Item Value Reference Range Comments PT (test code = PT) 11.1 sec 10.2- 12.8 sec INR (test code = INR) 0.97 [id number] 06:26:00 Test Item Value Reference Range Comments APTT (test code = APTT) 32.1 sec 27.7- 37.7 sec Heparin Correlation (test code = Heparin <0.2 Correlation) D-Dimer, [id number] 06:26:00 Test Item Value Reference Range Comments D-Dimer (test code = D-Dimer) 904 ng/mL DDU <230 ng/mL DDU [id number] 06:26:00 Test Item Value Reference Range Comments Fibrinogen (test code = Fibrinogen) 362 mg/dL 177- 386 mg/ dL [id number] 06:26:00 Test Item Value Reference Range Comments WBC (test code = WBC) 2.8 10*9/L 4.5- 11.0 10*9/L RBC (test code = RBC) 4.21 10*12/L 4.00- 5.20 10*12/L HGB (test code = HGB) 11.3 g/dL 12.0- 16.0 g/dL HCT (test code = HCT) 33.0 % 36.0- 46.0 % MCV (test code = MCV) 78.5 fL 80.0- 100.0 fL MCH (test code = MCH) 26.7 pg 26.0- 34.0 pg MCHC (test code = MCHC) 34.1 g/dL 31.0- 37.0 g/dL RDW (test code = RDW) 13.1 % 12.0- 15.0 % MPV (test code = MPV) 8.2 fL 7.0- 10.0 fL Platelet (test code = Platelet) 149 10*9/L 150- 440 10*9/L Basic Metabolic [id number] 06:26:00 Test Item Value Reference Range Comments Sodium (test code = Sodium) 137 mmol/L 135- 145 mmol/L Potassium (test code = Potassium) 4.8 mmol/L 3.5- 5.0 mmol/ L Chloride (test code = Chloride) 106 mmol/L 98- 107 mmol/L CO2 (test code = CO2) 24.0 mmol/L 22.0- 30.0 mmol/L BUN (test code = BUN) 6 mg/dL 7- 21 mg/dL Creatinine (test code = Creatinine) 0.56 mg/dL 0.60- 1.00 m g/dL BUN/Creatinine Ratio (test code = 11 BUN/Creatinine Ratio) EGFR MDRD Non Af Amer (test code = EGFR MDRD >=60 >=6 0 mL/min/1.73m2 Non Af Amer) EGFR MDRD Af Amer (test code = EGFR MDRD Af >=60 >=60 mL/min/1.73m2 Amer) Anion Gap (test code = Anion Gap) 7 mmol/L 9- 15 mmol/L Glucose (test code = Glucose) 125 mg/dL 65- 179 mg/dL Calcium (test code = Calcium) 8.5 mg/dL 8.5- 10.2 mg/dL [id number] 06:26:00 Test Item Value Reference Range Comments Magnesium (test code = Magnesium) 1.8 mg/dL 1.6- 2.2 mg/dL [id number] 06:26:00 Test Item Value Reference Range Comments Phosphorus (test code = Phosphorus) 4.1 mg/dL 2.9- 4.7 mg/ dL HIV Antigen/Antibody [id number] 06:26:00 Test Item Value Reference Range Comments HIV Antigen/Antibody Combo (test code = HIV Nonreactive Nonr eactive Antigen/Antibody Combo) ECG 12 lead, ECG Tech [id number] 03:08:10 Test Item Value Reference Range Comments EKG Systolic BP (test code = EKG Systolic BP) EKG Diastolic BP (test code = EKG Diastolic BP) EKG Ventricular Rate (test code = EKG Ventricular 93 BPM Rate) EKG Atrial Rate (test code = EKG Atrial Rate) 93 BPM EKG P-R Interval (test code = EKG P-R Interval) 154 ms EKG QRS Duration (test code = EKG QRS Duration) 88 ms EKG Q-T Interval (test code = EKG Q-T Interval) 376 ms EKG QTC Calculation (test code = EKG QTC 467 ms Calculation) EKG Calculated P Advance (test code = EKG Calculated 58 degrees P Advance) EKG Calculated R Advance (test code = EKG Calculated 94 degrees R Advance) EKG Calculated T Advance (test code = EKG Calculated 49 degrees T Advance) [id number] 02:57:00 Test Item Value Reference Range Comments Alcohol, Ethyl (test code = Alcohol, Ethyl) <10.0 Unde fined mg/dL CT ABDOMEN PELVIS W IV [id number] 05:28:00Impression: 1. Splenomegaly. 2. No definite vaginal mass. 3. Question prominent nabothian cyst uterine cervix. 4. Bilateral inguinal and left external iliac mild adenopathy. Reading Doctor: Catia Dorsey Electronic Signature by: Catia Dorsey Procedure(s): CT ABDOMEN PELVIS W IV CONTRAST Clinical History: Right vaginal wall abscess. Technique: Oral and IV contrast administered, multidetector helical CT lung bases to pubic symphysis.Coronal and sagittal reformations generated. Contrast: 95 cc of Omnipaque 350 administered without incident. Findings: Correlation 08/26/2017. Small left lower lobe posterior lung nodule, likely benign. Lung bases are otherwise clear. No pleural or pericardial fluid. Spleen elongated since prior, 16.6 cm longitudinally. 33 x 19 mm low-density lesion right ovary. 16 mm low- density lesion region of uterine cervix. No definitive vaginal mass. Shotty mildly enlarged bilateral inguinal nodes, largest approximate 12 mm bilaterally, shotty external iliac nodes, largest 10 mm on left. The liver, gallbladder, pancreas, adrenals and kidneys are all within normal limits.Hollow viscus are normal. Normal appendix. No free air or free fluid. Review of bone windows is unremarkable. Interface, Radresults_Incoming - 06/05/2018 5:32 AM EST Procedure(s): CT ABDOMEN PELVIS W IV CONTRAST Clinical History: Right vaginal wall abscess. Technique: Oral and IV contrast administered, multidetector helical CT lung bases to pubic symphysis. Coronal and sagittal reformations generated. Contrast: 95 cc of Omnipaque 350 administered without incident. Findings: Correlation 08/26/2017. Small left lower lobe posterior lung nodule, likely benign. Lung bases are otherwise clear. No pleural or pericardial fluid. Spleen elongated since prior, 16.6 cm longitudinally. 33 x 19 mm low-density lesion right ovary. 16 mm low-density lesion region of uterine cervix. No definitive vaginal mass. Shotty mildly enlarged bilateral inguinal nodes, largest approximate 12 mm bilaterally, shotty external iliac nodes, largest 10 mm on left. The liver, gallbladder, pancreas, adrenals and kidneys are all within normal limits. Hollow viscus are normal. Normal appendix. No free air or free fluid. Review of bone windows is unremarkable. IMPRESSION Impression: 1. Splenomegaly. 2. No definite vaginal mass. 3. Question prominent nabothian cyst uterine cervix. 4. Bilateral inguinal and left external iliac mild adenopathy. Reading Doctor: Catia Dorsey Electronic Signature by: Jake DorseyaLACTIC ACID 2018-06-05 04:33:05 Test Item Value Reference Range Comments Lactic Acid (test code = 2524-7) 1.2 mmol/L 0.4-1.7 CHLAMYDIA/GC DNA [id number] 04:19:09 Test Item Value Reference Range Comments Chlamydia trachomatis DNA NOT DETECTEDThis assay uses (test code = 79081-9) real-time PCR amplification and fluorescent-labeled DNA probesdesigned to target a single sequence of Chlamydia DNA.The Xpert CT/NG Assay performance has not been evaluated in patients less than14 years of age, women, patients with a history of hysterectomy orpatients currently being treated with antimicrobial agentsactive against CTor NG.As with many diagnostic tests, results from thisassay should be interpretedin conjunction with other laboratory and clinical data available. This test isto be used for medical purposes only. Neisseria gonorrhea DNA (test NOT DETECTEDThis assay uses code = 10711-5) real-time PCR amplification and fluorescent-labeled DNA probesdesigned to target two unique regions of Neisseria gonorrhoeae DNA.The Xpert CT/NG Assay performance has not been evaluated in patients less than14 years of age, women, patients with a history of hysterectomy orpatients currently being treated with antimicrobial agentsactive against CTor NG.As with many diagnostic tests, results from thisassay should be interpretedin conjunction with other laboratory and clinical data available. This test isto be used for medical purposes only. SED RATE (ESR)2018-06-05 03:48:21 Test Item Value Reference Range Comments Erythrocyte Sedimentation Rate (ESR) (test code = 26 mm/h 0-20 4537-7) Lab Interpretation (test code = 62878-4) Abnormal C-REACTIVE PROTEIN, HIGH [id number] 03:03:11 Test Item Value Reference Range Comments C-Reactive Protein (CRP), Highly Sensitive (test 82.9 mg/L 0-5 code = 68748-5) Lab Interpretation (test code = 40731-7) Abnormal URINE [id number] 02:33:56 Test Item Value Reference Range Comments RBC, urine (test code = 66605-4) 6-10 /HPF WBC, urine (test code = 5821-4) 21-50 /HPF Epithelial Cells, urine (test code = 5787-7) MOD /HP F Casts, Hyaline, urine (test code = 5796-8) 0-2 /LPF Bacteria, urine (test code = 48446-1) MOD URINE [id number] 02:32:56 Test Item Value Reference Range Comments Appearance, urine (test code = 5767-9) SL.CLOUDY CLEAR^DEXTER AR Color, urine (test code = 5778-6) YELLOW YEL^YELLOW Specific [place], urine (test code = 5811-5) 1.026 1.0 03-1.040 pH, urine (test code = 5803-2) 6.0 5.0-8.0 Protein, urine (test code = 5804-0) 30 NEG^NEG Glucose, urine (test code = 5792-7) NEG NEG^NEG Ketones, urine (test code = 5797-6) NEG NEG^NEG Hemoglobin, urine (test code = 5794-3) SMALL NEG^NEG Urobilinogen, urine (test code = 48925-6) 0.2 0.2-1. 0 Bilirubin, urine (test code = 5770-3) NEG NEG^NEG Nitrites, urine (test code = 5802-4) NEG NEG^NEG Leukocyte Esterase, urine (test code = 5799-2) MOD N EG^NEG Lab Interpretation (test code = 19696-2) Abnormal SCREEN, [id number] 02:26:15 Test Item Value Reference Range Comments HCG, urine (test code = 2106-3) NEG PT (PROTHROMBIN TIME) WITH [id number] 02:10:21 Test Item Value Reference Range Comments PT (test code = 5902-2) 10.2 sec 9.3- 11.4 sec INR (test code = 6301-6) 1.0 1.0-4.99 Therape utic INR range: 2.0-3.0 [id number] 02:10:21 Test Item Value Reference Range Comments aPTT (test code = 58903-2) 30.9 sec 21.5- 31.5 sec CBC WITH [id number] 02:08:25 Test Item Value Reference Range Comments WBC (test code = 6690-2) 3.74 k/uL 4.5- 12.5 k/uL RBC (test code = 789-8) 4.65 M/uL 4.2- 5.4 M/uL Hemoglobin (test code = 718-7) 12.2 g/dL 11.2-15.8 Hematocrit (calc.) (test code = 4544-3) 36.7 % 35-45 MCV (test code = 787-2) 79 fL 81-99 MCH (test code = 785-6) 26.2 pg 27-31 MCHC (calc.) (test code = 786-4) 33.2 g/dL 33-37 RDW (test code = 788-0) 12.8 % 11.5-14.5 Platelet (test code = 777-3) 125 k/uL 150- 599 k/uL Mean Platelet Volume (test code = 40568-5) 10.9 fL 7.4-1 0.4 Absolute NRBC (test code = 771-6) 0.00 k/uL k/uL RBC Nucleated (test code = 36181-3) 0.00 /100 WBC /100 WBC Immature Granulocytes (%) (test code = 0 % 13835-3) Neutrophil (%) (test code = 01538-9) 75 % 50-70 Lymphocyte (%) (test code = 736-9) 16 % 18-42 Monocyte (%) (test code = 5905-5) 3 % 2-9 Eosinophil (%) (test code = 713-8) 6 % 1-3 Basophil (%) (test code = 706-2) 0 % 0-2 Immature Granulocytes (#) (test code = 0.00 k/uL k/uL 60840-6) Neutrophil (#) (test code = 07959-6) 2.81 k/uL k/uL Lymphocyte (#) (test code = 731-0) 0.60 k/uL k/uL Monocyte (#) (test code = 742-7) 0.11 k/uL k/uL Eosinophil (#) (test code = 711-2) 0.22 k/uL k/uL Basophil (#) (test code = 704-7) 0.00 k/uL k/uL RBC Morphology (test code = 6742-1) 1+MICROCYTES, Platelet (est.) (test code = 9317-9) ADEQUATE Lab Interpretation (test code = 37470-0) Abnormal WET PREP (SALINE)2018-06-05 02:03:50 Test Item Value Reference Range Comments Specimen (test code = VAGINAL SPECIMEN 21704-0) Information (test code = NONE 73656-3) Wet Preparation (test code = NO TRICHOMONAS OR YEAST 680-9) SEENFEWCELLS RESEMBLING CLUE CELLS OBSERVEDMODERATE WBCS OBSERVED Report Status (test code = 06/05/2018 241792) BASIC METABOLIC [id number] 01:36:27 Test Item Value Reference Range Comments BUN (test code = 3094-0) 11 mg/dL 7-18 Sodium (test code = 134 mEq/L 136- 145 mEq/L 2951-2) Potassium (test code = 3.8 mEq/L 3.5- 5.1 mEq/L 2823-3) Chloride (test code = 105 mEq/L 98- 107 mEq/L 2075-0) Bicarbonate (TCO2) (test 18 mEq/L 22- 29 mEq/L code = 2027-9) Glucose (test code = 110 mg/dL 70-109 2345-7) Creatinine (test code = 1.02 mg/dL 0.57-1.11 2160-0) Anion Gap (calc.) (test 11 mEq/L mEq/L code = 69642-3) Calcium (test code = 8.9 mg/dL 8.2-10.6 Radiologic Contrast 72454-8) Media may alter Calcium levels f or 48 hours after consumption. BUN/Creatinine (test code 10.8 mg/dL = 3097-3) Osmolality (calc) (test 268 mOsmol/kg mOsmol/kg code = 03702-5) GFR, non-AA, (est.) (test 75 mL/Min/1.73 m2 >59 mL/Min/1.73 m2 code = 85157-6) GFR, AA, (est.) (test code >90 >59 mL/Min/1.73 m2 = 72441-9) Lab Interpretation (test Abnormal code = 66065-0) HEMOGLOBIN A1C (GLYCOSYLATED)2018-05-05 12:09:36 Test Item Value Reference Range Comments Hemoglobin A1c (test code = 4.8 % 4-6 A1C Normal Range: 4548-4) 4.0% to 6.0% Pre -Diabetic Range: 5.7% to 6 .4% Diabetic Range: > =6.5% _ The methodolog y used in the current assay ma y be subject to over estimati on (up to 20%) of the value of glycated hemoglobin (Hgb A1C) in the setting of concu rrent hemoglobin varia nts. Glucose, estimated average 91 mg/dL (NOTE ) Reference:Shaun (test code = 04722-6) EDMAR et al. Translating the A1c Assay Into Estima patsy Average Gluc ose Values. Diabet es Care 31:1473- 1478, 2007. URINE [id number] 23:00:49 Test Item Value Reference Range Comments RBC, urine (test code = 31698-5) NONE SEEN /HPF WBC, urine (test code = 5821-4) NONE SEEN /HPF SCREEN, [id number] 23:00:40 Test Item Value Reference Range Comments HCG, urine (test code = 2106-3) NEG URINE [id number] 22:59:49 Test Item Value Reference Range Comments Appearance, urine (test code = 5767-9) CLEAR CLEAR^DEXTER AR Color, urine (test code = 5778-6) YELLOW YEL^YELLOW Specific [place], urine (test code = 5811-5) 1.010 1.0 03-1.040 pH, urine (test code = 5803-2) 7.5 5.0-8.0 Protein, urine (test code = 5804-0) NEG NEG^NEG Glucose, urine (test code = 5792-7) NEG NEG^NEG Ketones, urine (test code = 5797-6) NEG NEG^NEG Hemoglobin, urine (test code = 5794-3) MOD NEG^NEG Urobilinogen, urine (test code = 74938-4) 1 0.2-1. 0 Bilirubin, urine (test code = 5770-3) NEG NEG^NEG Nitrites, urine (test code = 5802-4) NEG NEG^NEG Leukocyte Esterase, urine (test code = 5799-2) MOD N EG^NEG Lab Interpretation (test code = 35459-6) Abnormal CBC WITH [id number] 22:31:17 Test Item Value Reference Range Comments WBC (test code = 6690-2) 6.56 k/uL 4.5- 12.5 k/uL RBC (test code = 789-8) 4.92 M/uL 4.2- 5.4 M/uL Hemoglobin (test code = 718-7) 13.2 g/dL 11.2-15.8 Hematocrit (calc.) (test code = 4544-3) 39.1 % 35-45 MCV (test code = 787-2) 80 fL 81-99 MCH (test code = 785-6) 26.8 pg 27-31 MCHC (calc.) (test code = 786-4) 33.8 g/dL 33-37 RDW (test code = 788-0) 12.8 % 11.5-14.5 Platelet (test code = 777-3) 230 k/uL 150- 599 k/uL Mean Platelet Volume (test code = 80590-4) 10.0 fL 7.4-1 0.4 Absolute NRBC (test code = 771-6) 0.00 k/uL k/uL RBC Nucleated (test code = 34707-2) 0.00 /100 WBC /100 WBC Immature Granulocytes (%) (test code = 1 % 86224-4) Neutrophil (%) (test code = 09750-6) 36 % 50-70 Lymphocyte (%) (test code = 736-9) 55 % 18-42 Monocyte (%) (test code = 5905-5) 7 % 2-9 Eosinophil (%) (test code = 713-8) 1 % 1-3 Basophil (%) (test code = 706-2) 1 % 0-2 Immature Granulocytes (#) (test code = 0.07 k/uL k/uL 85542-7) Neutrophil (#) (test code = 44812-2) 2.36 k/uL k/uL Lymphocyte (#) (test code = 731-0) 3.61 k/uL k/uL Monocyte (#) (test code = 742-7) 0.46 k/uL k/uL Eosinophil (#) (test code = 711-2) 0.07 k/uL k/uL Basophil (#) (test code = 704-7) 0.07 k/uL k/uL RBC Morphology (test code = 6742-1) 1+MICROCYTES, Platelet (est.) (test code = 9317-9) ADEQUATE Lab Interpretation (test code = 65885-1) Abnormal [id number] 22:14:22 Test Item Value Reference Range Comments Lipase (test code = 3040-3) 41 U/L 8-78 COMPREHENSIVE METABOLIC [id number] 22:14:22 Test Item Value Reference Range Comments Sodium (test code = 2951-2) 140 mEq/L 136- 145 mEq/L Potassium (test code = 3.7 mEq/L 3.5- 5.1 mEq/L 2823-3) Chloride (test code = 107 mEq/L 98- 107 mEq/L 5-0) Bicarbonate (TCO2) (test 23 mEq/L 22- 29 mEq/L code = 2027-9) Calcium (test code = 10.2 mg/dL 8.2-10.6 Radiologic Contrast 95717-6) Media may alter Calcium levels for 48 ho urs after consumptio n. Glucose (test code = 2345-7) 92 mg/dL 70-109 BUN (test code = 3094-0) 6 mg/dL 7-18 Protein, Total (test code = 6.8 g/dL 6.5-8.5 2885-2) Albumin (test code = 1751-7) 4.5 g/dL 3.85-5.35 Bilirubin, Total (test code 0.5 mg/dL 0.2-1.2 = 1975-2) Alkaline Phosphatase (test 122 U/L 40-150 code = 6768-6) AST (SGOT) (test code = 28 U/L 5-34 1920-8) Creatinine (test code = 0.71 mg/dL 0.57-1.11 2160-0) Anion Gap (calc.) (test code 10 mEq/L mEq/L = 61869-6) ALT (SGPT) (test code = 27 U/L 0-55 1742-6) BUN/Creatinine (test code = 8.5 mg/dL 3097-3) Osmolality (calc) (test code 277 mOsmol/kg mOsmol/kg = 18267-3) Globulin (calc.) (test code 2.3 g/dL = 18425-7) Albumin / Globulin (test 1.96 code = 1759-0) GFR, non-AA, (est.) (test >90 >59 mL/Min/1.73 m2 code = 27911-8) GFR, AA, (est.) (test code = >90 >59 mL/Min/1.73 m2 60898-0) Lab Interpretation (test Abnormal code = 86621-2) T4, [id number] 16:40:23 Test Item Value Reference Range Comments T4 (Thyroxine), Free (test code = 3024-7) 1.01 ng/mL 0.7-1. 48 [id number] 16:40:23 Test Item Value Reference Range Comments TSH (test code = 42010-4) 0.81 uIU/mL 0.35- 4.94 uIU/mL COMPREHENSIVE METABOLIC [id number] 16:21:37 Test Item Value Reference Range Comments Sodium (test code = 2951-2) 139 mEq/L 136- 145 mEq/L Potassium (test code = 4.0 mEq/L 3.5- 5.1 mEq/L 2823-3) Chloride (test code = 105 mEq/L 98- 107 mEq/L 5-0) Bicarbonate (TCO2) (test 27 mEq/L 22- 29 mEq/L code = 2027-9) Calcium (test code = 10.1 mg/dL 8.2-10.6 Radiologic Contrast 55937-6) Media may alter Calcium levels for 48 ho urs after consumptio n. Glucose (test code = 2345-7) 93 mg/dL 70-109 BUN (test code = 3094-0) 6 mg/dL 7-18 Protein, Total (test code = 7.1 g/dL 6.5-8.5 2885-2) Albumin (test code = 1751-7) 4.7 g/dL 3.85-5.35 Bilirubin, Total (test code 0.5 mg/dL 0.2-1.2 = 1974-2) Alkaline Phosphatase (test 119 U/L 40-150 code = 6768-6) AST (SGOT) (test code = 25 U/L 5-34 1920-8) Creatinine (test code = 0.70 mg/dL 0.57-1.11 2160-0) Anion Gap (calc.) (test code 7 mEq/L mEq/L = 11750-2) ALT (SGPT) (test code = 26 U/L 0-55 1742-6) BUN/Creatinine (test code = 8.6 mg/dL 3097-3) Osmolality (calc) (test code 275 mOsmol/kg mOsmol/kg = 55844-9) Globulin (calc.) (test code 2.4 g/dL = 68039-0) Albumin / Globulin (test 1.96 code = 1759-0) GFR, non-AA, (est.) (test >90 >59 mL/Min/1.73 m2 code = 37725-0) GFR, AA, (est.) (test code = >90 >59 mL/Min/1.73 m2 58209-8) Lab Interpretation (test Abnormal code = 38805-8) [id number] 16:21:37 Test Item Value Reference Range Comments Phosphorus (test code = 2777-1) 3.6 mg/dL 2.3-4.7 [place] Test (86335)2017-08-16 00:00:00 Test Item Value Reference Range Comments IMUNASAY INF ANTBDY-QUAL (test code = IMUNASAY INF negative ANTBDY-QUAL) Rapid Strep (17351)2017-08-16 00:00:00 Test Item Value Reference Range Comments STREPTOCOCCUS GRP A, INFCTS ANTIGN negative Culture Plated by: JR WALKER (test code = 6556-5) Throat Culture (37907)2017-08-16 00:00:00 Test Item Value Reference Range Comments KIMBERLY CULTURE-OTHER Negative for Results read p er M. (test code = 634-6) "Presumptive" Strep LESTER Cid after 48 hours AARON Chance. URINE CULTURE (85955) [id number] 00:00:00 Test Item Value Reference Range Comments URINE KIMBERLY 10^4 growth after 18 Cultures re ad by: CULTURE-PENNY COL hours Jagdish Mohr Re sults COUNT (test code = entered by: Lubna URIBE sent to 630-4) [facility] for culture ID & sensitivity URINE CULTURE ([id number]) [id number] 00:00:00 Test Item Value Reference Range Comments URINE KIMBERLY CULTURE-PENNY >10^5 growth after 18 con fluent growth Cultures COL COUNT (test code = hours read by: Luciana 630-4) Jeremy NAIK Res ults entered by: MARIETTA pt treated Test (89559)2017-05-26 00:00:00 Test Item Value Reference Range Comments URINE PREG TEST-VIS COL (test code = negative Results entered by: EOLoren 2111-1) Test (03953)2017-04-27 00:00:00 Test Item Value Reference Range Comments URINE PREG TEST-VIS COL (test negative Re sults entered by: AARON MARQUEZ code = 2112-1) Throat Culture (02816)2017-02-02 00:00:00 Test Item Value Reference Range Comments KIMBERLY CULTURE-OTHER Negative for per Luciana Luna (test code = 634-6) "Presumptive" Strep A PAC. Adamaris Aaron RN after 48 hours Rapid Strep (83008)2017-02-02 00:00:00 Test Item Value Reference Range Comments STREPTOCOCCUS GRP A, INFCTS negative Resu lted and plated-JB RN ANTIGN (test code = 6556-5) Throat Culture (26327)2016-08-12 00:00:00 Test Item Value Reference Range Comments KIMBRELY CULTURE-OTHER Negative after 48 hours per La sheila Zimmerman PA-C. (test code = 634-6) Hung Aaron RN Influenza Test B (65332)2016-08-12 00:00:00 Test Item Value Reference Range Comments INFCT AGT ANTIGEN DIRECT FLOURESCENT negative Results entered by: EOM ASSAY; I (test code = 6599-5) Influenza Test A (90472)2016-08-12 00:00:00 Test Item Value Reference Range Comments Influenza B Ag, Direct Fluorescent negative Results entered by: EOM Ab (test code = 6599-5) Rapid Strep (37615)2016-08-12 00:00:00 Test Item Value Reference Range Comments STREPTOCOCCUS GRP A, INFCTS negative Cult ure Plated by: AB ANTIGN (test code = 6556-5) Resu lts entered by: EOM Throat Culture (47641)2016-07-01 00:00:00 Test Item Value Reference Range Comments KIMBERLY CULTURE-OTHER Negative after 48 hours per elle Matta (test code = 634-6) LESTER leung RN Influenza Test B (81106)2016-07-01 00:00:00 Test Item Value Reference Range Comments INFCT AGT ANTIGEN DIRECT FLOURESCENT ASSAY; I negative Hung Aaron RN (test code = 6599-5) Influenza Test A (00189)2016-07-01 00:00:00 Test Item Value Reference Range Comments Influenza B Ag, Direct Fluorescent Ab (test negative Hung Aaron RN code = 6599-5) Rapid Strep (21022)2016-07-01 00:00:00 Test Item Value Reference Range Comments STREPTOCOCCUS GRP A, INFCTS ANTIGN negative TC plated. Rosmery [place] (test code = 6556-5) Throat Culture (84545)2015-08-26 00:00:00 Test Item Value Reference Range Comments KIMBERLY CULTURE-OTHER Negative after 48 hours Cultur es read by: (test code = 634-6) Aranyos Resu lts entered by: EOM Rapid Strep (94503)2015-08-26 00:00:00 Test Item Value Reference Range Comments STREPTOCOCCUS GRP A, INFCTS ANTIGN negative Results entered by: SC (test code = 6556-5) [place] Test (78065)2015-06-27 00:00:00 Test Item Value Reference Range Comments IMUNASAY INF ANTBDY-QUAL (test positive R esults entered by: AARON MARQUEZ code = IMUNASAY INF ANTBDY-QUAL) Throat Culture (10395)2015-06-27 00:00:00 Test Item Value Reference Range Comments KIMBERLY CULTURE-OTHER Negative after 48 hours per Sa ndy Machon CPNP. (test code = 634-6) Lia Aaron RN Rapid Strep (73590)2015-06-27 00:00:00 Test Item Value Reference Range Comments STREPTOCOCCUS GRP A, INFCTS negative Resu lts entered by: EG ANTIGN (test code = 6556-5) Cult ure plated by: EG [place] Test (41706)2015-04-30 00:00:00 Test Item Value Reference Range Comments IMUNASAY INF ANTBDY-QUAL (test negative r esulted by Gisele Morales RN. C. code = IMUNASAY INF Galen RN ANTBDY-QUAL) Throat Culture (12779)2015-04-30 00:00:00 Test Item Value Reference Range Comments KIMBERLY CULTURE-OTHER Negative after 48 hours per Sa ndy Machon CPNP. (test code = 634-6) Lia Aaron RN Rapid Strep (43999)2015-04-30 00:00:00 Test Item Value Reference Range Comments STREPTOCOCCUS GRP A, INFCTS ANTIGN (test negative TC plated by STEWART HEADLEY code = 6556-5) Throat Culture (49440)2015-01-21 00:00:00 Test Item Value Reference Range Comments KIMBERLY CULTURE-OTHER Negative after 48 hours per La sheila Zimmerman PA-C. (test code = 634-6) Hung Aaron RN Rapid Strep (72265)2015-01-21 00:00:00 Test Item Value Reference Range Comments STREPTOCOCCUS GRP A, INFCTS ANTIGN negative Culture Plated by: (test code = 6556-5) Throat Culture (56016)2014-07-13 00:00:00 Test Item Value Reference Range Comments KIMBERLY CULTURE-OTHER Negative after 48 hours Cultur es read by: (test code = 634-6) Aranyos Resu lts entered by: EOLoren Rapid Strep (48268)2014-07-13 00:00:00 Test Item Value Reference Range Comments STREPTOCOCCUS GRP A, INFCTS ANTIGN (test code negative alp tc plated = 6556-5) Throat Culture (23574)2014-05-01 00:00:00 Test Item Value Reference Range Comments KIMBERLY CULTURE-OTHER Negative after [address] Mirta Persaud (test code = 634-6) Galen RN Influenza Test B (21679)2014-05-01 00:00:00 Test Item Value Reference Range Comments INFCT AGT ANTIGEN DIRECT FLOURESCENT positive entered by arielernesto cordero ASSAY; I (test code = 6599-5) Influenza Test A (04209)2014-05-01 00:00:00 Test Item Value Reference Range Comments Influenza B Ag, Direct Fluorescent negative entered by ariel cordero Ab (test code = 6599-5) Rapid Strep (18480)2014-05-01 00:00:00 Test Item Value Reference Range Comments STREPTOCOCCUS GRP A, INFCTS negative ente red by arielernesto cordero ANTIGN (test code = 6556-5) plat ed by arielernesto cordero [place] Test (92198)2014-03-05 00:00:00 Test Item Value Reference Range Comments IMUNASAY INF ANTBDY-QUAL (test code = IMUNASAY INF negative EG ANTBDY-QUAL) Throat Culture (26029)2014-03-05 00:00:00 Test Item Value Reference Range Comments KIMBERLY CULTURE-OTHER Negative after 48 hours per Sa arlene HAWKINS (test code = 634-6) Hung Aaron RN Rapid Strep (27763)2014-03-05 00:00:00 Test Item Value Reference Range Comments STREPTOCOCCUS GRP A, INFCTS ANTIGN (test code = negative TC plated EG 6556-5) Assessments Condition Name Status Diagnosis Date Treating Clinici an Genital herpes simplex Active 2020-02-15 12:26:40 Pain in pelvis Active 2020-02-05 08:53:48 Cyst of ovary Active 2020-02-05 08:53:40 Hypertension screening Active 2020-02-05 08:57:03 Tonsillitis Unknown Pharyngitis Active Submandibular lymphadenopathy Active UTI (urinary tract infection) Active UTI (urinary tract infection) Active Lower abdominal pain Active Left low back pain Active Unspecified Diagnosis Active UTI (urinary tract infection) Active DUB (dysfunctional uterine bleeding) Active Depression Active Nexplanon in place Active Nexplanon insertion Active Depression Active Right acute serous otitis media Active Right otitis media Active URI (upper respiratory infection) Active Encounter for initial prescription of Active Nexplanon Irregular periods Active Adolescent Female Well Visit (Renamed Active from Encounter for routine child health examination) Flu- Influenza Quadrivalent (Full) Active 84565 (Renamed from Need for immunization against influenza) MENACTRA (V03.89) 92622 Active Back pain Active Irregular periods Active Gastritis Active Depression Active Prevnar (63891) (Renamed from Need for Active vaccination against Streptococcus pneumoniae) Abnormal vision screen Active Community acquired pneumonia Active Community acquired pneumonia Active Unspecified Diagnosis Active Bronchitis Active Pharyngitis Active Rhinitis Active Gastritis Active URI (upper respiratory infection) Active Pharyngitis Active URI (upper respiratory infection) Active Pharyngitis Active Headache Active Abnormal vision screen Active Back pain Active H/O suicide attempt Active Fatigue Active Sore throat Active Feared complaint without diagnosis Active Abdominal pain Active Mononucleosis Active Pharyngitis Active Sinusitis Active Xerosis cutis Active Pharyngitis Active URI (upper respiratory infection) Active Flu Active Pharyngitis Active Sore throat Active Injury of left foot including toes Active FEMALE ADOLESCENT WELL VISIT (V20.2) Active BMI (body mass index), pediatric, Active 95-99% for age (Renamed from Body mass index equal to or greater than 95th percentile for age in pediatric patient) Right knee pain Active Right ankle pain Active Right knee pain Active Headache Active Anxiety Active Strep throat exposure Active Anxiety Active FLU - INFLUENZA (Full) (V04.81) 42247 Active Dysmenorrhea Active Encounters Start End Encounter Admission Attending Care Care Encounter Date/Time Date/Time Type Type Clinicians Facility Department ID 2018-06-05 Inpatient [facility] [id number] 00:00:00 DELANO [id number] 2020-02-15 2020-02-15 Sabrina Figueroa Med[facility]ir [id number] 00:00:00 00:00:00 Antonia Immediate & Immediate & 1008 INFORMATION TECHNOLOGY INSTRUCTOR: [address] [facility] Alma Filibertoy, Juan [address], [place] [address], Ph. 2020-02-05 2020-02-05 [facility] [id number] 00:00:00 00:00:00 Wolanzyk, Immediate & Immediate & 0928 INFORMATION TECHNOLOGY INSTRUCTOR: 609 [facility] Jolly, Juan [address], [place] [address], Ph. 2019-10-31 2019-10-31 Emergency [facility] [id number] 00:48:00 01:44:00 2019-10-31 2019-10-31 Emergency X LAN FAJARDO [facility] [id number] 00:48:00 00:48:00 2019-08-01 2019-08-01 Outpatient R [place], [facility] [id number] 04:00:00 04:00:00 RICK 2019-07-03 2019-07-03 Emergency X EMERGENCY, [facility] [id number] 22:39:34 22:41:00 ATTENDING 2019-07-03 2019-07-03 Emergency [facility] [id number] 22:39:34 22:41:00 2019-05-23 2019-05-23 Emergency [facility] [id number] 03:46:58 03:48:00 2019-05-23 2019-05-23 Emergency X PAULINO BOB [facility] [id number] 03:46:58 03:46:58 2019-03-26 2019-03-27 Emergency X PAULINO BOB [facility] [id number] 23:07:00 01:34:00 2019-03-26 2019-03-27 Emergency [facility] [id number] 23:07:00 01:34:00 2019-02-21 2019-02-21 Emergency [facility] [id number] 11:15:59 13:39:00 2019-02-21 2019-02-21 Emergency X EMERGENCY, [facility] [id number] 11:15:59 11:15:59 ATTENDING 2018-10-11 2018-10-11 Emergency X SHREYA [facility] [id number] 11:13:18 13:32:00 JENNY 2018-10-11 2018-10-11 Emergency [facility] [id number] 11:13:18 13:32:00 2018-09-30 2018-09-30 Emergency X XOCHITL [facility] [id number] 04:17:00 06:39:00 MAYRA TEERSA 2018-09-30 2018-09-30 Emergency [facility] [id number] 04:17:00 06:39:00 2018-09-04 2018-09-04 Emergency X SHREYA [facility] [id number] 01:28:39 06:15:00 JENNY 2018-09-04 2018-09-04 Emergency [facility] [id number] 01:28:39 06:15:00 2018-08-10 2018-08-10 [place] [id number] 10:00:00 12:22:49 Visit Peds Peds 2018-06-20 2018-06-20 Outpatient [facility] [id number] 00:00:00 23:59:00 [id number] 2018-06-20 2018-06-20 Outpatient [facility] [id number] 00:05:47 00:05:47 2018-06-15 2018-06-15 Outpatient [facility] [id number] 00:00:00 00:00:00 [id number] 2018-06-13 2018-06-13 Outpatient [facility] [id number] 00:00:00 00:00:00 2018-06-10 2018-06-10 Outpatient [facility] [id number] 00:00:00 00:00:00 2018-06-06 2018-06-08 Inpatient [facility] [id number] 01:05:00 15:20:00 2018-06-06 2018-06-08 Inpatient EL [facility], [facility] [id number] 01:05:00 15:20:00 DELANO [id number] 2018-06-05 2018-06-05 Emergency [facility] [id number] 00:00:00 22:29:00 2018-06-05 2018-06-05 Emergency X EMERGENCY, [facility] [id number] 00:00:00 22:29:00 ATTENDING 2018-05-30 2018-05-30 Emergency [facility] [id number] 11:11:24 13:24:00 2018-05-30 2018-05-30 Emergency X SANCHEZ, [facility] [id number] 11:11:24 13:24:00 PING 2018-05-05 2018-05-05 Outpatient [facility] [id number] 11:10:00 23:59:00 2018-04-21 2018-04-21 Outpatient [facility] [id number] 12:50:00 23:59:00 2018-04-06 2018-04-06 Emergency [facility] [id number] 03:23:08 03:24:00 2018-04-06 2018-04-06 Emergency X PAULINO BOB [facility] [id number] 03:23:08 03:24:00 2018-04-05 2018-04-05 Outpatient [facility] [id number] 15:15:00 23:59:00 2018-04-05 2018-04-05 Outpatient R JEREMY, [facility] [id number] 15:15:00 23:59:00 LUCIANA 2017-08-16 2017-08-16 Office [place] [id number] [id number] 10:52:39 11:31:50 Visit Peds Peds 2017-08-02 2017-08-02 Orders only [facility] [id number] 16:22:20 16:23:25 Peds Peds 2017-08-02 2017-08-02 Review [place] [id number] [id number] 10:22:55 10:24:00 Peds Peds 2017-07-28 2017-08-01 Office [place] [id number] [id number] 09:18:24 17:23:26 Visit Peds Peds 2017-07-12 2017-07-20 [place] [address] [id number] 11:25:24 09:11:57 Visit Peds Peds 2017-07-13 2017-07-13 [place] [id number] [id number] 09:30:23 09:33:45 Peds Peds 2017-07-05 2017-07-08 Office [place] [address] [id number] 10:00:00 11:12:04 Visit Peds Peds 2017-06-09 2017-06-09 [place] [id number] [id number] 16:12:48 17:01:11 Visit Peds Peds 2017-05-26 2017-05-26 Office [place] [id number] [id number] 11:28:15 12:34:20 Visit Peds Peds 2017-05-18 2017-05-18 Office [place] [id number] [id number] 09:54:39 10:59:58 Visit Peds Peds 2017-04-27 2017-05-13 Office [place] [id number] [id number] 14:39:31 10:59:15 Visit Peds Peds 2017-05-11 2017-05-11 Office [place] [id number] [id number] 09:50:05 10:30:44 Visit Peds Peds 2017-04-26 2017-04-27 [place] [address] [id number] 09:08:56 05:58:11 Visit Peds Peds 2017-02-26 2017-02-26 Office [place] [id number] [id number] 11:09:27 12:05:56 Visit Peds Peds 2017-02-23 2017-02-23 [place] [address] [id number] 09:32:28 10:28:22 Visit Peds Peds 2017-02-23 2017-02-23 [facility] 1 [id number] 09:21:48 09:29:16 Summary Peds Peds 2017-02-19 2017-02-22 [place] [id number] [id number] 10:29:55 13:55:54 Visit Peds Peds 2017-02-02 2017-02-03 [place] [id number] [id number] 10:25:27 16:48:08 Visit Peds Peds 2016-12-18 2016-12-18 Order(s) [facility] 963 [id number] 14:20:58 14:21:44 only Peds Peds 2016-08-12 2016-08-12 [place] [id number] [id number] 14:46:56 15:21:08 Visit Peds Peds 2016-07-01 2016-07-01 [place] [address] [id number] 10:58:54 11:55:15 Visit Peds Peds 2016-03-17 2016-03-20 Office [place] [id number] 09:30:00 17:04:43 Visit Peds Peds 2015-08-26 2015-08-26 Office [facility] 1004 [id number] 11:18:12 12:23:16 Visit Peds Peds 2015-06-27 2015-07-01 Office [place] [address] [id number] 14:30:00 13:42:32 Visit Peds Peds 2015-04-30 2015-04-30 [place] [id number] [id number] 14:38:24 15:32:42 Visit Peds Peds 2015-01-21 2015-01-23 Office [facility] 100 [id number] 15:24:03 13:53:31 Visit Peds Peds 2014-07-13 2014-07-13 Office [place] [id number] [id number] 11:52:29 12:54:08 Visit Peds Peds 2014-05-01 2014-05-01 Office [place] [id number] [id number] 14:15:31 15:04:03 Visit Peds Peds 2014-03-05 2014-03-05 Office [place] [address] [id number] 13:47:51 14:42:40 Visit Peds Peds 2014-02-15 2014-02-16 Office [facility] 100 [id number] 08:41:35 08:55:35 Visit Peds Peds 2014-01-17 2014-01-25 Office [facility] 100 [id number] 09:01:41 14:06:32 Visit Peds Peds 2013-07-18 2013-07-18 Office [facility] 100 [id number] 10:51:25 11:52:34 Visit Peds Peds 2013-06-13 2013-06-13 Phone [place] [id number] [id number] 17:21:47 17:26:01 Encounter Peds Peds 2013-06-05 2013-06-05 Phone [place] [id number] [id number] 17:35:09 17:37:07 Encounter Peds Peds 2013-05-26 2013-05-30 [place] [id number] [id number] 08:30:25 12:05:11 Visit Peds Peds 2013-05-29 2013-05-29 Phone [place] [address] [id number] 10:13:19 10:57:22 Encounter Peds Peds 2013-05-25 2013-05-25 [facility] 1 [id number] 11:17:47 11:25:50 Summary Peds Peds 2013-05-11 2013-05-11 [facility] 1 [id number] 14:54:19 15:00:02 Summary Peds Peds 2013-04-17 2013-04-17 [facility] [id number] [id number] 15:26:53 16:48:19 Encounter Peds Peds 2013-04-17 2013-04-17 [facility] 1 [id number] 13:39:08 13:40:04 Summary Peds Peds 2013-04-17 2013-04-17 [facility] 1 [id number] 13:29:58 13:38:40 Summary Peds Peds 2013-04-03 2013-04-03 [facility] 1 [id number] 16:46:13 16:59:58 Summary Peds Peds Family History Family Member Diagnosis Comments Start Date Stop Date Unspecified Asthma Maternal Grandfather. Unspecified Brain Cancer STEP SISTER Unspecified Cancer Maternal Grandmother. Unspecified Diabetes Mellitus Maternal Great Grandmother. Maternal Grandfather. Unspecified Hypertension Maternal Grandfather. Unspecified Stroke Maternal Great Grandfather. Immunizations Ordered Filled Date Status Comments Refusal Immunization Name Immunization Name Reason Influenza Vaccine 2018-05-11 Cancelled Quad (IIV4 PF) 6mo+ 9 injectable 00:00:00 Influenza Virus 2018-02-07 Completed Vaccine, 5 unspecified 00:00:00 formulation Pneumococcal 2017-04-09 Completed Site: Deltoid conjugate vaccine, 8 (Right) VIS Given : 13 valent, IM 10:14:00 * Pneumococcal Conjugate (PCV13) (03/14/15) Influenza, 2017-04-09 Completed Site: Deltoid injectable, 8 (Left) VIS Given: quadrivalent 09:30:00 * Influenza - Inactivated (12/14/14) Meningococcal 2017-04-09 Completed Site: Deltoid (serogroups A,C,Y & 8 (Right) VIS Give n: W-135) 09:30:00 * Meningococcal Vaccine (02/20/11) Influenza (3 years 2013-05-10 Completed Site: Deltoid and up) 7 (Right); 09:06:00 Administered without difficulty Influenza (3 years 2012-05-10 Completed and up) 0 00:00:00 Influenza (3 years 2011-03-10 Completed and up) 6 00:00:00 HPV, quadrivalent 2010-12-08 Completed 5 00:00:00 Meningococcal MCV4O 2010-12-08 Completed (serogp 5 A,C,Y&W-135) 00:00:00 HPV, quadrivalent 2010-03-10 Completed 2 00:00:00 Influenza (3 years 2010-03-10 Completed and up) 2 00:00:00 HPV, quadrivalent Completed 6 00:00:00 Tdap (7 years and Completed up) 6 00:00:00 Influenza (3 years Completed and up) 5 00:00:00 Hep A 2008-04-09 Completed pediatric/adolescen 7 t (2 dose) 00:00:00 Influenza (3 years 2008-04-09 Completed and up) 7 00:00:00 Hep A 2007-09-09 Completed pediatric/adolescen 7 t (2 dose) 00:00:00 Varicella 2007-09-09 Completed 7 00:00:00 Influenza (3 years 2007-05-10 Completed and up) 7 00:00:00 DTaP 2004-12-09 Completed 9 00:00:00 IPV 2004-12-09 Completed 9 00:00:00 MMR 2004-12-09 Completed 9 00:00:00 DTaP 2001-06-11 Completed 7 00:00:00 IPV 2001-06-11 Completed 7 00:00:00 MMR Completed 7 00:00:00 HIB (PRP-T) 2000-11-08 Completed 7 00:00:00 Pneumococcal (5 2000-11-08 Completed years and under) 7 00:00:00 Varicella 2000-11-08 Completed 7 00:00:00 Pneumococcal (5 2000-08-09 Completed years and under) 6 00:00:00 Hep B 2000-05-11 Completed pediatric/adolescen 5 t 00:00:00 DTaP Completed 9 00:00:00 HIB (PRP-T) Completed 9 00:00:00 Pneumococcal (5 Completed years and under) 9 00:00:00 DTaP 2000-03-11 Completed 7 00:00:00 HIB (PRP-T) 2000-03-11 Completed 7 00:00:00 IPV 2000-03-11 Completed 7 00:00:00 Pneumococcal (5 2000-03-11 Completed years and under) 7 00:00:00 DTaP 2000-01-10 Completed 5 00:00:00 Hep B 2000-01-10 Completed pediatric/adolescen 5 t 00:00:00 HIB (PRP-T) 2000-01-10 Completed 5 00:00:00 IPV 2000-01-10 Completed 5 00:00:00 Hep B 1999 Completed pediatric/adolescen 5 t 00:00:00 Payers Payer Name Policy Type Policy Number Effective Date Expiration D ate MEDICAIDMEDICAID [place] [id number] 00:00:00 -[phone] aid MEDICAID [place] ACCESS [id number] Medicaid [place] ACCESS [id number] 2018 00:00:00 Plan of Treatment Planned Activity Planned Date Details Comments Future Scheduled Test [code = ] Future Scheduled Test [code = ] Future Scheduled Test [code = ] Future Scheduled Test [code = ] Future Scheduled Test [code = ] Future Scheduled Test [code = ] Future Scheduled Test [code = ] Future Scheduled Test [code = ] Future Scheduled Test [code = ] Future Scheduled Test [code = ] Future Scheduled Test [code = ] Future Scheduled Test [code = ] Future Scheduled Test [code = ] Future Scheduled Test [code = ] Future Scheduled Test [code = ] Future Scheduled Test [code = ] Future Scheduled Test [code = ] Future Scheduled Test [code = ] Future Scheduled Test [code = ] Future Scheduled Test [code = ] Future Scheduled Test [code = ] Future Scheduled Test [code = ] Future Scheduled Test [code = ] Future Scheduled Test [code = ] Future Scheduled Test [code = ] Future Scheduled Test [code = ] Future Scheduled Test [code = ] Future Scheduled Test [code = ] Future Scheduled Test [code = ] Future Scheduled Test [code = ] Future Scheduled Test [code = ] Future Scheduled Test [code = ] Future Scheduled Test [code = ] Future Scheduled Test [code = ] Future Scheduled Test [code = ] Future Scheduled Test [code = ] Future Scheduled Test [code = ] Future Scheduled Test [code = ] Future Scheduled Test [code = ] Future Scheduled Test [code = ] Future Scheduled Test [code = ] Future Scheduled Test [code = ] Future Scheduled Test [code = ] Future Scheduled Test [code = ] Future Scheduled Test [code = ] Future Scheduled Test [code = ] Future Scheduled Test [code = ] Future Scheduled Test [code = ] Future Scheduled Test [code = ] Future Scheduled Test [code = ] Future Scheduled Test [code = ] Future Scheduled Test [code = ] Future Scheduled Test [code = ] Future Scheduled Test [code = ] Future Scheduled Test [code = ] Future Scheduled Test [code = ] Future Scheduled Test [code = ] Future Scheduled Test [code = ] Future Scheduled Test [code = ] Future Scheduled Test [code = ] Future Scheduled Test [code = ] Future Scheduled Test [code = ] Instructions Instructions [facility] - 03/27/2019Heat. Medication as di rected. Plenty of fluids. Make sure to c losely follow up as discussed or return with any worsening of symptoms.Attachment sThe following attachments cannot be sent through Care Everywhere.Neck Spr ain or Strain (CROATIAN)Head Injury (Yonatan lt) (CROATIAN)Ovarian Cyst (CROATIAN) Instructions Instructions [facility] - 10/11/2018Plenty of fluids. Medi cation as directed. Make sure to follow up or return with any worsening of symptoms.AttachmentsThe followin g attachments cannot be sent [facility] Care Everywhere.Herpes Genitalis, Hsv : Type Ii (CROATIAN)Bladder Infection, Fema le (Adult) (CROATIAN) Instructions AttachmentsThe following attachm ents cannot be sent through Care Everywhere.Pyelonephritis, Femal e (Adult) (CROATIAN) Instructions Instructions Jenny Cash MD - 09/04/2018Please call your [facility] physician to arrange follow up appointment. Please return to [facility] ED if symptoms worsen or if new sympto ms develop such as severe headache, dizziness, chest pain, difficult y breathing, change in mental status.AttachmentsThe following attachments cannot be sent [facility] Care Everywhere.Pelvic Pain, Unknown Cause (CROATIAN) Instructions Instructions Ping Sanchez se, MD - 05/30/2018 Please return here in 2 days for a recheck or sooner if worse tyrel. Please take all medications as prescribed. Please return to the emergency room if your symptoms worsen, do not improve, or for any other concerns. Attachments The follow ing attachments cannot be sent throu gh Care Everywhere. Abscess, Incision An d Drainage (CROATIAN) Social History Social Habit Start Date Stop Date Comments Passive Smoke Exposure: Mother & Father Tobacco Use Tobacco Use: Sex Assigned At Alcohol intake 2019-10-31 00:00:00 2019-10-31 00:00:00 Cigarettes smoked current 2019-10-31 00:00:00 2019-10-31 00:00:0 0 (pack per day) - Reported Cigarette pack-years 2019-10-31 00:00:00 2019-10-31 00:00:00 Tobacco use and exposure 2019-10-31 00:00:00 2019-10-31 00:00:00 Tobacco Comment 2019-07-19 00:00:00 2019-07-19 00:00:00 Tobacco smoking status [facility] 2018-06-06 00:00:00 2018-06-06 00:00 :00 Smoking Status Start Date Stop Date History of tobacco use Light Tobacco Smoker Never smoker Current every day smoker 2019-10-31 00:00:00 2019-10-31 00:0 0:00 Vital Signs Vital Name Observation Time Observation Value Comments BP Diastolic 2020-02-15 00:00:00 78 mm[Hg] Height 2020-02-15 00:00:00 64 [in_i] BMI (Body Mass Index) 2020-02-15 00:00:00 35.9 kg/m2 BP Systolic 2020-02-15 00:00:00 80 mm[Hg] Body Weight 2020-02-15 00:00:00 209 [lb_av] BP Diastolic 2020-02-05 00:00:00 69 mm[Hg] Height 2020-02-05 00:00:00 64 [in_i] BMI (Body Mass Index) 2020-02-05 00:00:00 35.2 kg/m2 BP Systolic 2020-02-05 00:00:00 114 mm[Hg] Body Weight 2020-02-05 00:00:00 205 [lb_av] Temperature 2018-08-10 10:13:31 99 [degF] Method: Tymp anic Weight 2018-08-10 10:13:31 181.8 [lb_av] Temperature 2017-08-16 11:00:27 99.3 [degF] Method: Tymp anic Weight 2017-08-16 11:00:27 188 [lb_av] Temperature 2017-07-28 09:30:56 99.8 [degF] Method: Tymp an Weight 2017-07-28 09:30:56 182.2 [lb_av] Temperature 2017-07-12 11:31:00 98.6 [degF] Method: Megan an Weight 2017-07-12 11:31:00 180.6 [lb_av] Temperature 2017-07-05 09:52:36 98.7 [degF] Method: Tym an Weight 2017-07-05 09:52:36 178 [lb_av] Temperature 2017-06-09 16:12:53 98.9 [degF] Method: Megan an Weight 2017-06-09 16:12:53 179.8 [lb_av] Temperature 2017-05-26 11:28:20 99.9 [degF] Method: Megan lisaic Pulse 2017-05-26 11:28:20 97 /min Pattern: Reg ular Respiration Rate 2017-05-26 11:28:20 20 /min Pattern: Un labored BP Systolic 2017-05-26 11:28:20 120 mm[Hg] Patient Posi tion: Sitting; Cuff Location: Left A rm; Cuff Size: Stand angie BP Diastolic 2017-05-26 11:28:20 68 mm[Hg] Patient Posi tion: Sitting; Cuff Location: Left A rm; Cuff Size: Stand angie Weight 2017-05-26 11:28:20 177.4 [lb_av] Temperature 2017-05-18 09:54:42 98.3 [degF] Method: Megan lisa Weight 2017-05-18 09:54:42 183 [lb_av] Temperature 2017-04-27 14:46:15 99.1 [degF] Method: Tymp anic Pulse 2017-04-27 14:46:15 91 /min Pattern: Reg ular BP Systolic 2017-04-27 14:46:15 116 mm[Hg] Patient Posi tion: Sitting; Cuff Location: Left A rm; Cuff Size: Small BP Diastolic 2017-04-27 14:46:15 71 mm[Hg] Patient Posi tion: Sitting; Cuff Location: Left A rm; Cuff Size: Small Weight 2017-04-27 14:46:15 179.8 [lb_av] Temperature 2017-05-11 09:57:06 99.1 [degF] Method: Tymp anic Weight 2017-05-11 09:57:06 179.4 [lb_av] Temperature 2017-04-26 09:32:18 98.4 [degF] Method: Tymp anic Pulse 2017-04-26 09:32:18 88 /min Pattern: Reg ular Respiration Rate 2017-04-26 09:32:18 20 /min Pattern: Un labored BP Systolic 2017-04-26 09:32:18 109 mm[Hg] Patient Posi tion: Sitting; Cuff Location: Left A rm; Cuff Size: Large BP Diastolic 2017-04-26 09:32:18 70 mm[Hg] Patient Posi tion: Sitting; Cuff Location: Left A rm; Cuff Size: Large Weight 2017-04-26 09:32:18 175.8 [lb_av] Height 2017-04-26 09:32:18 64.63 [in_us] Body Mass Index 2017-04-26 09:32:18 29.59 kg/m2 Calculated Temperature 2017-02-26 11:09:32 99.3 [degF] Method: Tym anic Weight 2017-02-26 11:09:32 180 [lb_av] Temperature 2017-02-23 09:37:43 98.8 [degF] Method: Megan anic Respiration Rate 2017-02-23 09:37:43 25 /min Pattern: Un labored O2 SAT 2017-02-23 09:37:43 98 % Room air Weight 2017-02-23 09:37:43 180 [lb_av] Temperature 2017-02-19 10:34:09 99.2 [degF] Method: Tymp anic Weight 2017-02-19 10:34:09 175.4 [lb_av] Temperature 2017-02-02 10:25:37 100.1 [degF] Method: Tymp anic Weight 2017-02-02 10:25:37 176 [lb_av] Temperature 2016-08-12 14:49:44 99.9 [degF] Method: Tymp anic Weight 2016-08-12 14:49:44 172.8 [lb_av] Temperature 2016-07-01 11:05:23 99.6 [degF] Method: Tymp anic Weight 2016-07-01 11:05:23 173.2 [lb_av] Pulse 2016-03-17 10:11:36 105 /min Pattern: Reg ular BP Systolic 2016-03-17 10:11:36 105 mm[Hg] Patient Posi tion: Sitting; Cuff Location: Left A rm; Cuff Size: Stand angie BP Diastolic 2016-03-17 10:11:36 71 mm[Hg] Patient Posi tion: Sitting; Cuff Location: Left A rm; Cuff Size: Stand angie Temperature 2016-03-17 09:30:46 99 [degF] Method: [facility] Weight 2016-03-17 09:30:46 168 [lb_av] Temperature 2015-08-26 11:40:58 99.1 [degF] Method: [facility] Weight 2015-08-26 11:40:58 170.2 [lb_av] Temperature 2015-06-27 14:53:48 98.4 [degF] Method: [facility] Weight 2015-06-27 14:53:48 175.6 [lb_av] Temperature 2015-04-30 14:50:56 98.6 [degF] Method: [facility] Weight 2015-04-30 14:50:56 173 [lb_av] Temperature 2015-01-21 15:32:08 98.7 [degF] Method: [facility] Weight 2015-01-21 15:32:08 177.6 [lb_av] Temperature 2014-07-13 11:52:35 98.9 [degF] Method: [facility] Weight 2014-07-13 11:52:35 173 [lb_av] Temperature 2014-05-01 14:17:19 100.4 [degF] Method: [facility] Weight 2014-05-01 14:17:19 165 [lb_av] Temperature 2014-03-05 13:49:41 98.6 [degF] Method: [facility] Weight 2014-03-05 13:49:41 166.8 [lb_av] Temperature 2014-02-15 08:43:18 98.4 [degF] Method: [facility] Weight 2014-02-15 08:43:18 167.4 [lb_av] Temperature 2014-01-17 09:07:05 98.3 [degF] Method: Tymp anic Pulse 2014-01-17 09:07:05 84 /min Pattern: Reg ular Respiration Rate 2014-01-17 09:07:05 20 /min Pattern: Un labored BP Systolic 2014-01-17 09:07:05 107 mm[Hg] Patient Posi tion: Sitting; Cuff Location: Left A rm; Cuff Size: Stand angie BP Diastolic 2014-01-17 09:07:05 61 mm[Hg] Patient Posi tion: Sitting; Cuff Location: Left A rm; Cuff Size: Stand angie Weight 2014-01-17 09:07:05 167.4 [lb_av] Height 2014-01-17 09:07:05 64.63 [in_us] Body Mass Index 2014-01-17 09:07:05 28.18 kg/m2 Calculated Temperature 2012-12-29 09:09:41 98.3 [degF] Method: Tymp anic Pulse 2012-12-29 09:09:41 80 /min Pattern: Reg ular Respiration Rate 2012-12-29 09:09:41 16 /min Pattern: Un labored BP Systolic 2012-12-29 09:09:41 122 mm[Hg] Patient Posi tion: Sitting; Cuff Location: Left A rm; Cuff Size: Stand angie BP Diastolic 2012-12-29 09:09:41 74 mm[Hg] Patient Posi tion: Sitting; Cuff Location: Left A rm; Cuff Size: Stand angie Weight 2012-12-29 09:09:41 156.6 [lb_av] Height 2012-12-29 09:09:41 64.13 [in_us] Body Mass Index 2012-12-29 09:09:41 26.77 kg/m2 Calculated Temperature 2013-07-18 10:58:03 98.7 [degF] Method: Tymp anic Weight 2013-07-18 10:58:03 161.8 [lb_av] Temperature 2013-05-26 08:33:52 98.5 [degF] Method: Tymp anic Pulse 2013-05-26 08:33:52 80 /min Pattern: Reg ular Respiration Rate 2013-05-26 08:33:52 20 /min Pattern: Un labored BP Systolic 2013-05-26 08:33:52 114 mm[Hg] Patient Posi tion: Sitting; Cuff Location: Left A rm; Cuff Size: Stand angie BP Diastolic 2013-05-26 08:33:52 68 mm[Hg] Patient Posi tion: Sitting; Cuff Location: Left A rm; Cuff Size: Stand angie Weight 2013-05-26 08:33:52 152.2 [lb_av] Height 2013-05-26 08:33:52 64.38 [in_us] Body Mass Index 2013-05-26 08:33:52 25.82 kg/m2 Calculated Body temperature 2019-10-31 01:42:00 36.89 [place] Respiratory rate 2019-10-31 01:42:00 16 /min Oxygen saturation in 2019-10-31 01:42:00 100 % Arterial blood by Pulse oximetry Systolic blood pressure 2019-10-31 01:42:00 132 mm[Hg] Diastolic blood pressure 2019-10-31 01:42:00 82 mm[Hg] Heart rate 2019-10-31 01:42:00 86 /min Body weight 2019-10-31 00:29:00 81.647 kg BMI 2019-10-31 00:29:00 29.95 kg/m2 Systolic blood pressure 2019-07-03 20:48:00 135 mm[Hg] Diastolic blood pressure 2019-07-03 20:48:00 88 mm[Hg] Heart rate 2019-07-03 20:48:00 86 /min Body temperature 2019-07-03 20:48:00 36.78 [place] Respiratory rate 2019-07-03 20:48:00 13 /min Body weight 2019-07-03 20:48:00 93.849 kg BMI 2019-07-03 20:48:00 34.43 kg/m2 Oxygen saturation in 2019-07-03 20:48:00 100 % Arterial blood by Pulse oximetry Systolic blood pressure 2019-05-22 23:30:00 134 mm[Hg] Diastolic blood pressure 2019-05-22 23:30:00 105 mm[Hg] Heart rate 2019-05-22 23:30:00 80 /min Body temperature 2019-05-22 23:30:00 36.67 [place] Respiratory rate 2019-05-22 23:30:00 20 /min Body height 2019-05-22 23:30:00 165.1 cm Body weight 2019-05-22 23:30:00 90.719 kg BMI 2019-05-22 23:30:00 33.28 kg/m2 Oxygen saturation in 2019-05-22 23:30:00 100 % Arterial blood by Pulse oximetry Systolic blood pressure 2019-03-27 01:24:00 131 mm[Hg] Diastolic blood pressure 2019-03-27 01:24:00 90 mm[Hg] Heart rate 2019-03-27 01:24:00 98 /min Respiratory rate 2019-03-27 01:24:00 18 /min Oxygen saturation in 2019-03-27 01:24:00 98 % Arterial blood by Pulse oximetry Body temperature 2019-03-26 23:10:00 37.39 [place] Body weight 2019-03-26 23:10:00 90.719 kg BMI 2019-03-26 23:10:00 33.28 kg/m2 Systolic blood pressure 2019-02-21 12:27:00 117 mm[Hg] Diastolic blood pressure 2019-02-21 12:27:00 66 mm[Hg] Heart rate 2019-02-21 12:27:00 81 /min Body temperature 2019-02-21 12:27:00 37 [place] Respiratory rate 2019-02-21 12:27:00 18 /min Oxygen saturation in 2019-02-21 12:27:00 99 % Arterial blood by Pulse oximetry Systolic blood pressure 2018-10-11 12:20:00 111 mm[Hg] Diastolic blood pressure 2018-10-11 12:20:00 77 mm[Hg] Heart rate 2018-10-11 12:20:00 73 /min Body temperature 2018-10-11 12:20:00 36.78 [place] Respiratory rate 2018-10-11 12:20:00 16 /min Oxygen saturation in 2018-10-11 12:20:00 100 % Arterial blood by Pulse oximetry Body height 2018-10-11 10:14:00 165.1 cm Body weight 2018-10-11 10:14:00 85.049 kg BMI 2018-10-11 10:14:00 31.20 kg/m2 Systolic blood pressure 2018-09-30 04:18:00 131 mm[Hg] Diastolic blood pressure 2018-09-30 04:18:00 70 mm[Hg] Heart rate 2018-09-30 04:18:00 89 /min Body temperature 2018-09-30 04:18:00 36.89 [place] Respiratory rate 2018-09-30 04:18:00 16 /min Oxygen saturation in 2018-09-30 04:18:00 98 % Arterial blood by Pulse oximetry Body weight 2018-09-30 01:09:00 85.503 kg BMI 2018-09-30 01:09:00 31.37 kg/m2 Systolic blood pressure 2018-09-04 05:43:00 119 mm[Hg] Diastolic blood pressure 2018-09-04 05:43:00 67 mm[Hg] Heart rate 2018-09-04 05:43:00 86 /min Body temperature 2018-09-04 05:43:00 36.61 [place] Respiratory rate 2018-09-04 05:43:00 16 /min Oxygen saturation in 2018-09-04 05:43:00 98 % Arterial blood by Pulse oximetry Body weight 2018-09-03 21:51:00 82.101 kg BMI 2018-09-03 21:51:00 30.12 kg/m2 SYSTOLIC BLOOD PRESSURE 2018-06-08 08:00:00 125 mm[Hg] DIASTOLIC BLOOD PRESSURE 2018-06-08 08:00:00 51 mm[Hg] HEART RATE 2018-06-08 08:00:00 86 /min BODY TEMPERATURE 2018-06-08 08:00:00 37 [place] RESPIRATORY RATE 2018-06-08 08:00:00 18 /min OXYGEN SATURATION 2018-06-08 08:00:00 97 % HEIGHT 2018-06-06 09:01:00 165.1 cm WEIGHT 2018-06-06 01:00:00 97.2 kg Oxygen saturation in 2018-06-05 21:57:00 100 % Arterial blood by Pulse oximetry Systolic blood pressure 2018-06-05 21:53:00 120 mm[Hg] Diastolic blood pressure 2018-06-05 21:53:00 61 mm[Hg] Heart rate 2018-06-05 21:53:00 115 /min Body temperature 2018-06-05 21:53:00 36.83 [place] Respiratory rate 2018-06-05 21:53:00 16 /min Body weight Measured 2018-06-05 00:05:00 81.647 kg BMI 2018-06-05 00:05:00 29.95 kg/m2 Systolic blood pressure 2018-05-30 12:34:00 106 mm[Hg] Diastolic blood pressure 2018-05-30 12:34:00 74 mm[Hg] Heart rate 2018-05-30 12:34:00 91 /min Body temperature 2018-05-30 12:34:00 36.67 [place] Respiratory rate 2018-05-30 12:34:00 18 /min Oxygen saturation in 2018-05-30 12:34:00 99 % Arterial blood by Pulse oximetry Body weight Measured 2018-05-30 11:06:00 81.647 kg BMI 2018-05-30 11:06:00 29.95 kg/m2 Systolic blood pressure 2018-04-06 00:23:00 121 mm[Hg] Diastolic blood pressure 2018-04-06 00:23:00 71 mm[Hg] Heart rate 2018-04-06 00:23:00 82 /min Body temperature 2018-04-06 00:23:00 36.67 [place] Body height 2018-04-06 00:23:00 165.1 cm Oxygen saturation in 2018-04-06 00:23:00 98 % Arterial blood by Pulse oximetry Body weight Measured 2018-04-05 21:38:00 83.604 kg BMI 2018-04-05 21:38:00 30.67 kg/m2 Hospital Discharge Instructions 1. Pain in pelvis test, urine 2. Cyst of ovary pulse oximetry (PROC) gynecology referral ibuprofen 600 mg tablet 3. Hypertension screening Discussion Note After performing a Medical Screening Examination, I estimate there is LOW risk for ACUTE APPENDICITIS, BOWEL OBSTRUCTION,ACUTE CHOLECYSTITIS, PERFORATED DIVERTICULITIS, INCARCERATED HERNIA, PANCREATITIS, PELVIC INFLAMMATORY DISEASE, PERFORATED ULCER, ECTOPIC , or TUBO- OVARIAN ABSCESS, thus I consider the discharge disposition reasonable. Also, there is no evidence of peritonitis, sepsis, or toxicity. The patient and I have discussed the diagnosis and risks, and we agree with discharging home with close follow-up with the understanding that symptoms and presentations can change. We also discussed returning to the Office immediately if new or worsening symptoms occur. We have discussed the symptoms which are most concerning (e.g., bloody stool, fever, changing or worsening pain, vomiting) that necessitate immediate return. Patient educational handouts: No information available.Instructions Cintia Gong PA-C - 03/27/2019Heat. Medication as directed. Plenty of fluids. Makesure to closely follow up as discussed or return with any worsening of symptoms. AttachmentsThe following attachments cannot be sent through Care Everywhere.Neck Sprain or Strain (CROATIAN)Head Injury (Adult) (CROATIAN)Ovarian Cyst (CROATIAN)documented in this encounterInstructions iCntia Gong PA-C - 10/11/2018Plenty of fluids. Medication as directed. Make sure to follow up or return with any worsening of symptoms. AttachmentsThe following attachments cannot besent through Care Everywhere.Herpes Genitalis, Hsv: Type Ii (CROATIAN)Bladder Infection, Female (Adult) (CROATIAN)documented in this encounterAttachmentsThe following attachments cannot be sent through Care Everywhere.Pyelonephritis, Female (Adult) (CROATIAN)documented in this encounter Instructions Jenny Cash MD - 09/04/2018Please call your primary physician to arrange follow up appointment. Please return to the ED if symptoms worsen or if new symptoms develop such as severe headache, dizziness, chest pain, difficulty breathing, change in mental status. AttachmentsThe following attachments cannot be sent through Care Everywhere.Pelvic Pain, Unknown Cause (CROATIAN)documented in this encounterNameDatesDetailsNo Instruction Information AvailableInstructions Ping Sanchez MD - 05/30/2018 Please return here in 2 days for a recheck or sooner if worsening. Please take all medications as prescribed. Please return to the emergency room if your symptoms worsen, do not improve, or for any other concerns. Attachments The following attachments cannot be sent through Care Everywhere. Abscess, Incision And Drainage (CROATIAN) in this encounterName Dates Details Left low back pain : Follow up if no improvement or if symptoms worsen Indication: Left low back pain Lower abdominal pain : Follow up if no improvement or if symptoms worsen Indication: Lower abdominal pain Adolescent Female Well Visit (Renamed from Encounter for routine child health examination) : Follow up in 1 year Indication: Adolescent Female Well Visit (Renamed from Encounter for routine child health examination) Pharyngitis : Follow up if no improvement or if symptoms worsen Indication: Pharyngitis URI (upper respiratory infection) : Follow up if no improvement or if symptoms worsen Indication: URI (upper respiratory infection) Back pain : Follow up if no improvement or if symptoms worsen Indication: Back pain Flu : Follow up if no improvement or if symptoms worsen Indication: Flu FEMALE ADOLESCENT WELL VISIT : Follow up in 1 year Indication: FEMALE ADOLESCENT WELL VISIT Right ankle pain : Follow up if no improvement or if symptoms worsen Indication: Right ankle painName Dates Details Left low back pain : Follow up if no improvement or if symptoms worsen Indication: Left low back pain Instruction Type: Provider Instructions for treatment Lower abdominal pain : Follow up if no improvement or if symptoms worsen Indication: Lower abdominal pain Instruction Type: Provider Instructions for treatment Adolescent Female W... : Follow up in 1 year Indication: Adolescent Female Well Visit (Renamed from Encounter for routine child health examination) Instruction Type: Provider Instructions for treatment Pharyngitis : Follow up if no improvement or if symptoms worsen Indication: Pharyngitis Instruction Type: Provider Instructions for treatment URI (upper respirat... : Follow up if no improvement or if symptoms worsen Indication: URI (upper respiratory infection) Instruction Type: Provider Instructions for treatment Back pain : Follow up if no improvement or if symptomsworsen Indication: Back pain Instruction Type: Provider Instructions for treatment Flu : Follow up if no improvement or if symptoms worsen Indication: Flu Instruction Type: Provider Instructions for treatment FEMALE ADOLESCENT W... : Follow up in 1 year Indication: FEMALE ADOLESCENT WELL VISIT Instruction Type: Provider Instructions for treatment Right ankle pain : Follow up if no improvement or if symptoms worsen Indication: Right ankle pain Instruction Type: Provider Instructions for treatmentName Dates Details Left low back pain : Follow up if no improvement or if symptoms worsen Indication: Left low back pain Instruction Type: Provider Instructions for treatment Lower abdominal pain : Follow up if no improvement or if symptoms worsen Indication: Lower abdominal pain Instruction Type: Provider Instructions for treatment Adolescent Female W... : Follow up in 1 year Indication: Adolescent Female Well Visit (Renamed from Encounter for routine child health examination) Instruction Type: Provider Instructions for treatment Pharyngitis : Follow up if no improvement or if symptoms worsen Indication: Pharyngitis Instruction Type: Provider Instructions for treatment URI (upper respirat... : Follow up if no improvement or if symptoms worsen Indication: URI (upper respiratory infection) Instruction Type: Provider Instructions for treatment Back pain : Follow up if no improvement or if symptomsworsen Indication: Back pain Instruction Type: Provider Instructions for treatment Flu : Follow up if no improvement or if symptoms worsen Indication: Flu Instruction Type: Provider Instructions for som atment FEMALE ADOLESCENT W... : Follow up in 1 year Indication: FEMALE ADOLESCENT WELL VISIT Instruction Type: Provider Instructions for treatment Right ankle pain : Follow up if no improvement or if symptoms worsen Indication: Right ankle pain Instruction Type: Provider Instructions for treatmentName Dates Details Left low back pain : Follow up if no improvement or if symptoms worsen Indication: Left low back pain Instruction Type: Provider Instructions for treatment Lower abdominal pain : Follow up if no improvement or if symptoms worsen Indication: Lower abdominal pain Instruction Type: Provider Instructions for treatment Adolescent Female W... : Follow up in 1 year Indication: Adolescent Female Well Visit (Renamed from Encounter for routine child health examination) Instruction Type: Provider Instructions for treatment Pharyngitis : Follow up if no improvement or if symptoms worsen Indication: Pharyngitis Instruction Type: Provider Instructions for treatment URI (upper respirat... : Follow up if no improvement or if symptoms worsen Indication: URI (upper respiratory infection) Instruction Type: Provider Instructions for treatment Back pain : Follow up if no improvement or if symptomsworsen Indication: Back pain Instruction Type: Provider Instructions for treatment Flu : Follow up if no improvement or if symptoms worsen Indication: Flu Instruction Type: Provider Instructions for treatment FEMALE ADOLESCENT W... : Follow up in 1 year Indication: FEMALE ADOLESCENT WELL VISIT Instruction Type: Provider Instructions for treatment Right ankle pain : Follow up if no improvement or if symptoms worsen Indication: Right ankle pain Instruction Type: Provider Instructions for treatmentName Dates Details Adolescent Female W... : Follow up in 1 year Indication: Adolescent Female Well Visit (Renamed from Encounter for routine child health examination) Instruction Type: Provider Instructions for treatment Pharyngitis : Follow up if no improvement or if symptoms worsen Indication: Pharyngitis Instruction Type: Provider Instructions for treatment URI (upper respirat... : Follow up if noimprovement or if symptoms worsen Indication: URI (upper respiratory infection) Instruction Type: Provider Instructions for treatment Back pain : Follow up if no improvement or if symptoms worsen Indica tion: Back pain Instruction Type: Provider Instructions for treatment Flu : Follow up if no improvement or if symptoms worsen Indication: Flu Instruction Type: Provider Instructions for treatment FEMALE ADOLESCENT W... : Follow up in 1 year Indication: FEMALE ADOLESCENT WELL VISIT Instruction Type: Provider Instructions for treatment Right ankle pain : Follow up if no improvement or if symptoms worsen Indication: Right ankle pain Instruction Type: Provider Instructions for treatmentName Dates Details Adolescent Female W... : Follow up in 1 year Indication: Adolescent Female Well Visit (Renamed from Encounter for routine child health examination) Instruction Type: Provider Instructions for treatment Pharyngitis : Follow up if no improvement or if symptoms worsen Indication: Pharyngitis Instruction Type: Provider Instructions for treatment URI (upper respirat... : Follow up if noimprovement or if symptoms worsen Indication: URI (upper respiratory infection) Instruction Type: Provider Instructions for treatment Back pain : Follow up if no improvement or if symptoms worsen Indication: Back pain Instruction Type: Provider Instructions for treatment Flu : Follow up if no improvement or if symptoms worsen Indication: Flu Instruction Type: Provider Instructions for treatment FEMALE ADOLESCENT W... : Follow up in 1 year Indication: FEMALE ADOLESCENT WELL VISIT Instruction Type: Provider Instructions for treatment Right ankle pain : Follow up if no improvement or if symptoms worsen Indication: Right ankle pain Instruction Type: Provider Instructions for treatmentName Dates Details Adolescent Female W... : Follow up in 1 year Indication: Adolescent Female Well Visit (Renamed from Encounter for routine child health examination) Instruction Type: Provider Instructions for treatment Pharyngitis : Follow up if no improvement or if symptoms worsen Indication: Pharyngitis Instruction Type: Provider Instructions for treatment URI (upper respirat... : Follow up if no improvement or if symptoms worsen Indication: URI (upper respiratory infection) Instruction Type: Provider Instructions for treatment Back pain : Follow up if no improvement or if symptoms worsen Indication: Back pain Instruction Type: Provider Instructions for treatment Flu : Follow up if no improvement or if symptoms worsen Indication: Flu Instruction Type: Provider Instructions for treatment FEMALE ADOLESCENT W... : Follow up in 1 year Indication: FEMALE ADOLESCENT WELL VISIT Instruction Type: Provider Instructions for treatment Right ankle pain : Follow up if no improvement or if symptoms worsen Indication: Right ankle pain Instruction Type: Provider Instructions for treatmentName Dates Details Adolescent Female W... : Follow up in 1 year Indication: Adolescent Female Well Visit (Renamed from Encounter for routine child health examination) Instruction Type: Provider Instructions for treatment Pharyngitis : Follow up if no improvement or if symptoms worsen Indication: Pharyngitis Instruction Type: Provider Instructions for treatment URI (upper respirat... : Follow up if noimprovement or if symptoms worsen Indication: URI (upper respiratory infection) Instruction Type: Provider Instructions for treatment Back pain : Follow up if no improvement or if symptoms worsen Indication: Back pain Instruction Type: Provider Instructions for treatment Flu : Follow up if no improvement or if symptoms worsen Indication: Flu Instruction Type: Provider Instructions for treatment FEMALE ADOLESCENT W... : Follow up in 1 year Indication: FEMALE ADOLESCENT WELL VISIT Instruction Type: Provider Instructions for treatment Right ankle pain : Follow up if no improvement or if symptoms worsen Indication: Right ankle pain Instruction Type: Provider Instructions for treatmentName Dates Details Adolescent Female W... : Follow up in 1 year Indication: Adolescent Female Well Visit (Renamed from Encounter for routine child health examination) Instruction Type: Provider Instructions for treatment Pharyngitis : Follow up if no improvement or if symptoms worsen Indication: Pharyngitis Instruction Type: Provider Instructions for treatment URI (upper respirat... : Follow up if noimprovement or if symptoms worsen Indication: URI (upper respiratory infection) Instruction Type: Provider Instructions for treatment Back pain : Follow up if no improvement or if symptoms worsen Indica tion: Back pain Instruction Type: Provider Instructions for treatment Flu : Follow up if no improvement or if symptoms worsen Indication: Flu Instruction Type: Provider Instructions for treatment FEMALE ADOLESCENT W... : Follow up in 1 year Indication: FEMALE ADOLESCENT WELL VISIT Instruction Type: Provider Instructions for treatment Right ankle pain : Follow up if no improvement or if symptoms worsen Indication: Right ankle pain Instruction Type: Provider Instructions for treatmentName Dates Details Adolescent Female W... : Follow up in 1 year Indication: Adolescent Female Well Visit (Renamed from Encounter for routine child health examination) Instruction Type: Provider Instructions for treatment Pharyngitis : Follow up if no improvement or if symptoms worsen Indication: Pharyngitis Instruction Type: Provider Instructions for treatment URI (upper respirat... : Follow up if noimprovement or if symptoms worsen Indication: URI (upper respiratory infection) Instruction Type: Provider Instructions for treatment Back pain : Follow up if no improvement or if symptoms worsen Indication: Back pain Instruction Type: Provider Instructions for treatment Flu : Follow up if no improvement or if symptoms worsen Indication: Flu Instruction Type: Provider Instructions for treatment FEMALE ADOLESCENT W... : Follow up in 1 year Indication: FEMALE ADOLESCENT WELL VISIT Instruction Type: Provider Instructions for treatment Right ankle pain : Follow up if no improvement or if symptoms worsen Indication: Right ankle pain Instruction Type: Provider Instructions for treatmentName Dates Details Adolescent Female W... : Follow up in 1 year Indication: Adolescent Female Well Visit (Renamed from Encounter for routine child health examination) Instruction Type: Provider Instructions for treatment Pharyngitis : Follow up if no improvement or if symptoms worsen Indication: Pharyngitis Instruction Type: Provider Instructions for treatment URI (upper respirat... : Follow up if no improvement or if symptoms worsen Indication: URI (upper respiratory infection) Instruction Type: Provider Instructions for treatment Back pain : Follow up if no improvement or if symptoms worsen Indication: Back pain Instruction Type: Provider Instructions for treatment Flu : Follow up if no improvement or if symptoms worsen Indication: Flu Instruction Type: Provider Instructions for treatment FEMALE ADOLESCENT W... : Follow up in 1 year Indication: FEMALE ADOLESCENT WELL VISIT Instruction Type: Provider Instructions for treatment Right ankle pain : Follow up if no improvement or if symptoms worsen Indication: Right ankle pain Instruction Type: Provider Instructions for treatmentName Dates Details Adolescent Female W... : Follow up in 1 year Indication: Adolescent Female Well Visit (Renamed from Encounter for routine child health examination) Instruction Type: Provider Instructions for treatment Pharyngitis : Follow up if no improvement or if symptoms worsen Indication: Pharyngitis Instruction Type: Provider Instructions for treatment URI (upper respirat... : Follow up if noimprovement or if symptoms worsen Indication: URI (upper respiratory infection) Instruction Type: Provider Instructions for treatment Back pain : Follow up if no improvement or if symptoms worsen Indication: Back pain Instruction Type: Provider Instructions for treatment Flu : Follow up if no improvement or if symptoms worsen Indication: Flu Instruction Type: Provider Instructions for treatment FEMALE ADOLESCENT W... : Follow up in 1 year Indication: FEMALE ADOLESCENT WELL VISIT Instruction Type: Provider Instructions for treatment Right ankle pain : Follow up if no improvement or if symptoms worsen Indication: Right ankle pain Instruction Type: Provider Instructions for treatmentName Dates Details Adolescent Female W... : Follow up in 1 year Indication: Adolescent Female Well Visit (Renamed from Encounter for routine child health examination) Instruction Type: Provider Instructions for treatment Pharyngitis : Follow up if no improvement or if symptoms worsen Indication: Pharyngitis Instruction Type: Provider Instructions for treatment URI (upper respirat... : Follow up if noimprovement or if symptoms worsen Indication: URI (upper respiratory infection) Instruction Type: Provider Instructions for treatment Back pain : Follow up if no improvement or if symptoms worsen Indica tion: Back pain Instruction Type: Provider Instructions for treatment Flu : Follow up if no improvement or if symptoms worsen Indication: Flu Instruction Type: Provider Instructions for treatment FEMALE ADOLESCENT W... : Follow up in 1 year Indication: FEMALE ADOLESCENT WELL VISIT Instruction Type: Provider Instructions for treatment Right ankle pain : Follow up if no improvement or if symptoms worsen Indication: Right ankle pain Instruction Type: Provider Instructions for treatmentName Dates Details Pharyngitis : Follow up if no improvement or if symptoms worsen Indication: Pharyngitis Instruction Type: Provider Instructions for treatment URI (upper respirat... : Follow up if no improvement or if symptoms worsen Indication: URI (upper respiratory infection) Instruction Type: Provider Instructions for treatment Back pain : Follow up if no improvement or if symptoms worsen Indication: Back pain Instruction Type: Provider Instructions for treatment Flu : Follow up if no improvement or if symptoms worsen Indication: Flu Instruction Type: Provider Instructions for treatment FEMALE ADOLESCENT W... : Follow up in 1 year Indication: FEMALE ADOLESCENT WELL VISIT Instruction Type: Provider Instructions for treatment Right ankle pain : Follow up if no improvement or if symptoms worsen Indication: Right ankle pain Instruction Type: Provider Instructions for treatmentName Dates Details Pharyngitis : Follow up if no improvement or if symptoms worsen Indication: Pharyngitis Instruction Type: Provider Instructions for treatment URI (upper respirat... : Follow up if noimprovement or if symptoms worsen Indication: URI (upper respiratory infection) Instruction Type: Provider Instructions for treatment Back pain : Follow up if no improvement or if symptoms worsen Indication: Back pain Instruction Type: Provider Instructions for treatment Flu : Follow up if no improvement or if symptoms worsen Indication: Flu Instruction Type: Provider Instructions for treatment FEMALE ADOLESCENT W... : Follow up in 1 year Indication: FEMALE ADOLESCENT WELL VISIT Instruction Type: Provider Instructions for treatment Right ankle pain : Follow up if no improvement or if symptoms worsen Indication: Right ankle pain Instruction Type: Provider Instructions for treatmentName Dates Details Pharyngitis : Follow up if no improvement or if symptoms worsen Indication: Pharyngitis Instruction Type: Provider Instructions for treatment URI (upper respirat... : Follow up if noimprovement or if symptoms worsen Indication: URI (upper respiratory infection) Instruction Type: Provider Instructions for treatment Back pain : Follow up if no improvement or if symptoms worsen Indica tion: Back pain Instruction Type: Provider Instructions for treatment Flu : Follow up if no improvement or if symptoms worsen Indication: Flu Instruction Type: Provider Instructions for treatment FEMALE ADOLESCENT W... : Follow up in 1 year Indication: FEMALE ADOLESCENT WELL VISIT Instruction Type: Provider Instructions for treatment Right ankle pain : Follow up if no improvement or if symptoms worsen Indication: Right ankle pain Instruction Type: Provider Instructions for treatment
== END 2020-03-21 04:44 | disposition home or self-care (01) ==
LOC: ER 21:48
DX: J98.8 Other specified respiratory disorders (principal); B97.89 Other viral agents as the cause of diseases classified elsewhere; R50.9 Fever, unspecified; R05 Cough; R09.81 Nasal congestion; J02.9 Acute pharyngitis, unspecified; R43.9 Unspecified disturbances of smell and taste; R06.2 Wheezing; I10 Essential (primary) hypertension; F17.200 Nicotine dependence, unspecified, uncomplicated; Z20.828 Contact with and (suspected) exposure to other viral communicable diseases; Z87.01 Personal history of pneumonia (recurrent)
CPT/HCPCS: 94640; 99284; 87635; 87804; 71046; J3490; J7613; C9803